=== PATIENT | female | born 1990 | race Two or more races ===

== ENCOUNTER 2016-12-07 22:15 | Emergency (ER) | payer MEDICAID ==
[2016-12-07] MEDS ORDERED: ONDANSETRON HCL IV 4 MG/2 ML VIAL IV ONE (22:39)
[2016-12-07] MEDS ORDERED: 0.9 % SODIUM CHLORIDE 1,000 ML BAG IV ONE (22:39)
[2016-12-07] MEDS ORDERED: DICYCLOMINE HCL 10 MG/ML AMPUL IM ONE (22:39)
[2016-12-07 23:16] LABS: URINE APPEARANCE CLEAR; URINE BILIRUBIN NEGATIVE (NEGATIVE); URINE BLOOD SMALL (NEGATIVE); URINE COLOR YELLOW; URINE GLUCOSE (UA) NEGATIVE (NEGATIVE); URINE KETONE NEGATIVE (NEGATIVE); URINE LEUKOCYTE ESTERASE NEGATIVE (NEGATIVE); URINE NITRITE NEGATIVE (NEGATIVE); URINE PROTEIN NEGATIVE (NEGATIVE); URINE UROBILINOGEN 0.2 E.U./dL (0.20 - 1.00)
[2016-12-07 23:17] LABS: BASO % 0.4 % (0-6); EOS % 0.7 % (0-6); HEMATOCRIT 39.9 % (35.0-47.0); MEAN CELL VOLUME 88.9 fl (81-97); MEAN CORPUSCULAR HGB CONC 32.6 g/dl (32-36); MEAN PLATELET VOLUME 9.5 fl (7.4-10.4); MONO % 6.9 % (0-9); PLATELET COUNT 332 K/uL (130-400); RED BLOOD COUNT 4.49 M/uL (3.80-5.40); RED CELL DISTRIBUTION WIDTH 12.9 % (11.5-14.5)
[2016-12-07 23:20] LABS: HCG,QUALITATIVE URINE NEGATIVE (NEGATIVE)
--- NOTE | 2016-12-07 23:20 | Emergency Department Record ---
History of Present Illness - General Chief Complaint: Abdominal Pain Stated Complaint: NAUSEA Time Seen by Provider: 12/07/16 22:34 Source: Patient Mode of Arrival: Ambulatory Limitations: No limitations - History of Present Illness Initial Comments: pt had constipation then today has had diarrhea, n/v, and abd pain that is constant Complaint: Abdominal pain Onset/Timin -: Days(s) Location: Diffuse Radiation: Back, Bilateral flank Migration to: Bilateral flank Severity: Severe Quality: Sharp Consistency: Constant Improves With: Medication Associated Symptoms: Diarrhea, Nausea, Vomiting Treatments Prior to Arrival: Other - Related Data LMP (females 10-50): 3 weeks ago Patient : No Home Medications Medication Instructions Recorded Confirmed Last Taken Ranitidine HCl 150 mg PO BID cap 05/18/16 12/07/16 Unknown Cyanocobalamin (Vitamin B-12) 2,500 mcg PO DAILY tab 07/11/16 12/07/16 Unknown [Vitamin B12] Melatonin 10 mg PO ASDIR tab 07/11/16 12/07/16 Unknown Naproxen 220 mg PO ASDIR PRN tab 07/11/16 12/07/16 Unknown Allergies Allergy/AdvReac Type Severity Reaction Status Date / Time passion fruit Allergy Intermediate WHEEZING Unverified 10/27/16 14:11 cat dander Allergy Mild HIVES Unverified 10/27/16 14:11 dog dander Allergy Mild HIVES Unverified 10/27/16 14:11 grass pollen Allergy Mild HIVES Unverified 10/27/16 14:11 Travel Screening - Travel/Exposure Within Last 30 Days Have you traveled within the last 30 days?: No - Travel Symptoms Symptom Screening: Diarrhea, Vomiting, Stomach Pain Review of Systems Reviewed: No additional complaints except as noted below Constitutional: Reports: As per HPI. Denies: Chills, Fever, Malaise, Night sweats, Weakness, Weight change Eyes: Reports: As per HPI. Denies: Eye discharge, Eye pain, Photophobia, Vision change ENT: Reports: As per HPI. Denies: Congestion, Dental pain, Ear pain, Epistaxis , Hearing loss, Throat pain Respiratory: Reports: As per HPI. Denies: Cough, Dyspnea, Hemoptysis, Stridor, Wheezes Cardiovascular: Reports: As per HPI. Denies: Arrhythmia, Chest pain, Dyspnea on exertion, Edema, Murmurs, Orthopnea, Palpitations, Paroxysmal nocturnal dyspnea, Rheumatic Fever, Syncope Endocrine: Reports: As per HPI. Denies: Fatigue, Heat or cold intolerance, Polydipsia, Polyuria Gastrointestinal: Reports: As per HPI. Denies: Abdominal pain, Constipation, Diarrhea, Hematemesis, Hematochezia, Melena, Nausea, Vomiting Genitourinary: Reports: As per HPI. Denies: Abnormal menses, Discharge, Dyspareunia, Dysuria, Frequency, Hematuria, Incontinence, Retention, Urgency Musculoskeletal: Reports: As per HPI. Denies: Arthralgia, Back pain, Gout, Joint swelling, Myalgia, Neck pain Skin: Reports: As per HPI. Denies: Bruising, Change in color, Change in hair/ nails, Lesions, Pruritus, Rash Neurological: Reports: As per HPI. Denies: Abnormal gait, Confusion, Headache, Numbness, Paresthesias, Seizure, Tingling, Tremors, Vertigo, Weakness Psychiatric: Reports: As per HPI. Denies: Anxiety, Auditory hallucinations, Depression, Homicidal thoughts, Suicidal thoughts, Visual hallucinations Hematological/Lymphatic: Reports: As per HPI. Denies: Anemia, Blood Clots, Easy bleeding, Easy bruising, Swollen glands Past Medical History - SOCIAL HISTORY Smoking Status: Former smoker Alcohol Use: Occassional Drug Use: None - RESPIRATORY Hx Respiratory Disorders: Yes Hx Asthma: Yes - CARDIOVASCULAR Hx Cardio Disorders: No - NEURO Hx Neuro Disorders: No - GI Hx GI Disorders: No - Hx Genitourinary Disorders: No - ENDOCRINE Hx Endocrine Disorders: No - MUSCULOSKELETAL Hx Musculoskeletal Disorders: Yes - PSYCH Hx Psych Problems: No - HEMATOLOGY/ONCOLOGY Hx Hematology/Oncology Disorders: No Family Medical History Any Significant Family History?: Yes Family Hx Comment (NOT TO BE USED IN PLACE OF ITEMS BELOW): Sister has Crohn's Hx Depression: Mother, Grandparents Hx Diabetes: Father, Mother, Brother/Sister, Grandparents Physical Exam - General General Appearance: Alert, Oriented x3, Cooperative, Mild distress - Head Head exam: Normal inspection - Eye Eye exam: Normal appearance, PERRL, EOMI Pupils: Normal accommodation - ENT ENT exam: Normal exam, Mucous membranes moist, Normal external ear exam, Normal orophraynx Ear exam: Normal external inspection. negative: External canal tenderness Nasal Exam: Normal inspection. negative: Discharge, Sinus tenderness Mouth exam: Normal external inspection, Tongue normal Teeth exam: Normal inspection. negative: Dental caries Throat exam: Normal inspection. negative: Tonsillar erythema, Tonsillar exudate - Neck Neck exam: Normal inspection, Full ROM. negative: Tenderness - Respiratory Respiratory exam: Normal lung sounds bilaterally. negative: Respiratory distress - Cardiovascular Cardiovascular Exam: Regular rate, Normal rhythm, Normal heart sounds - GI/Abdominal GI/Abdominal exam: Soft, Diminished bowel sounds, Tenderness - Rectal Rectal exam: Deferred - exam: Deferred - Extremities Extremities exam: Normal inspection, Full ROM, Normal capillary refill. negative: Tenderness - Back Back exam: Reports: Normal inspection, Full ROM. Denies: Muscle spasm, Rash noted, Tenderness - Neurological Neurological exam: Alert, CN II-XII intact, Normal gait, Oriented X3 - Psychiatric Psychiatric exam: Normal affect, Normal mood - Skin Skin exam: Dry, Intact, Normal color, Warm Course Vital Signs 12/07/16 22:23 Temperature 98.2 F Pulse Rate [ 92 H Pulse Ox Probe] Respiratory 20 Rate Blood Pressure 145/91 [Left Arm] Pulse Ox 100 Medical Decision Making - Data Complexity MDM Data: Labs Ordered and/or Reviewed - Lab Data Result diagrams: 12/07/16 23:00 12/07/16 23:00 Disposition Disposition: Discharge Clinical Impression: Abdominal pain Qualifiers: Abdominal location: generalized Qualified Code(s): R10.84 - Generalized abdominal pain Diarrhea Qualifiers: Diarrhea type: unspecified type Qualified Code(s): R19.7 - Diarrhea, unspecified Disposition: Home, Self-Care Condition: (1) Good Instructions: Abdominal Pain (ED), Acute Nausea and Vomiting (ED), Gastroenteritis (ED), Acute Diarrhea (ED) Additional Instructions: follow up with family doctor. return sooner if worse. clear liquids only for 12 hours. push fluids
[2016-12-07 23:29] LABS: ALB/GLOB RATIO 1.7 (1.1-1.8); ALBUMIN 4.5 gm/dL (3.5-5.0); ALKALINE PHOSPHATASE 71 U/L (38-126); ALT/SGPT 22 U/L (9-52); ANION GAP 11.6 (7-16); AST/SGOT 17 U/L (14-36); BILIRUBIN,TOTAL 0.27 mg/dL (0.2-1.3); BLOOD UREA NITROGEN 6 mg/dL (7-17); CARBON DIOXIDE 25.4 mmol/L (22-30); CREATININE 0.6 mg/dL (0.52-1.04); EST GLOMERULAR FILTRATION RATE > 60 ml/min; GLUCOSE,RANDOM 114 mg/dL (70-110); LIPASE 109 U/L (23-300); TOTAL PROTEIN 7.2 gm/dL (6.3-8.2); URINE BACTERIA 2+; URINE MUCUS LIGHT
[2016-12-08] MEDS ORDERED: KETOROLAC 30 MG/ML VIAL IVP ONE (00:28)
[2016-12-08] MEDS ORDERED: HYDROMORPHONE HCL 1 MG/ML CPJ IVP ONE (01:03)
[2016-12-08] MEDS ORDERED: ONDANSETRON 4 MG ODT TABLET SL ONE (01:39)
== END 2016-12-08 01:40 | disposition home or self-care (01) ==
LOC: ER 22:15
DX: R10.84 Generalized abdominal pain (principal); R11.2 Nausea with vomiting, unspecified; R19.7 Diarrhea, unspecified
CPT/HCPCS: 99284 ×2; 96374; 96372; 96375; 83690; 85025; 80053; 81001; 81025; 82272; 74176; J1885; J2405; J1170; J7030

== ENCOUNTER 2017-05-04 15:03 | Emergency (ER) | payer SELFPAY ==
[2017-05-04] MEDS: KETOROLAC 30 MG/ML VIAL IM ONE (16:13)
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
== END 2017-05-04 17:02 | disposition home or self-care (01) ==
LOC: ER 15:03
DX: S16.1XXA Strain of muscle, fascia and tendon at neck level, initial encounter (principal); M25.571 Pain in right ankle and joints of right foot; M25.551 Pain in right hip; M25.552 Pain in left hip; V40.5XXA Car driver injured in collision with pedestrian or animal in traffic accident, initial encounter; Y92.411 Interstate highway as the place of occurrence of the external cause
CPT/HCPCS: 99283; 96372; 99284; 73610; 72050; 73502; J1885

== ENCOUNTER 2018-02-25 13:58 | Emergency (ER) | payer MEDICAID ==
--- NOTE | 2018-02-25 14:54 | Emergency Department Record ---
History of Present Illness - General Chief complaint: Dental Stated complaint: jaw/dental pain Time Seen by Provider: 02/25/18 14:54 Source: Patient, RN notes reviewed Mode of Arrival: Ambulatory - History of Present Illness Initial comments: lost filling 2 days ago and developed pain yesterday. She put a filling from the drug store in the tooth and now it is painful. MD complaint: Tooth pain Onset/Timin -: Days(s) Location: Tooth # Severity: Moderate Severity scale (1-10): 9 Quality: Aching, Sharp Consistency: Constant Improves with: None Worsens with: Swallowing - Related Data Previous Rx's Medication Instructions Recorded Hydrocodone/APAP 5/325Mg [[place] 1 each PO Q6H #6 tab 02/25/18 5Mg/325Mg] Penicillin V Potassium 500 mg PO QID #40 tablet 02/25/18 Allergies Allergy/AdvReac Type Severity Reaction Status Date / Time passion fruit Allergy Intermediate WHEEZING Verified 02/25/18 14:05 cat dander Allergy Mild HIVES Verified 02/25/18 14:05 dog dander Allergy Mild HIVES Verified 02/25/18 14:05 grass pollen Allergy Mild HIVES Verified 02/25/18 14:05 Travel Screening - Travel/Exposure Within Last 30 Days Have you traveled within the last 30 days?: No - Travel/Exposure Within Last Year Have you traveled outside the [place] in the last year?: No - Additonal Travel Details Have you been exposed to anyone with a communicable illness?: No - Travel Symptoms Symptom Screening: None Review of Systems Reviewed: No additional complaints except as noted below Constitutional: Reports: As per HPI. Denies: Chills, Fever, Malaise, Night sweats, Weakness, Weight change Eyes: Reports: As per HPI. Denies: Eye discharge, Eye pain, Photophobia, Vision change ENT: Reports: As per HPI. Denies: Congestion, Dental pain, Ear pain, Epistaxis , Hearing loss, Throat pain Respiratory: Reports: As per HPI. Denies: Cough, Dyspnea, Hemoptysis, Stridor, Wheezes Cardiovascular: Reports: As per HPI. Denies: Arrhythmia, Chest pain, Dyspnea on exertion, Edema, Murmurs, Orthopnea, Palpitations, Paroxysmal nocturnal dyspnea, Rheumatic Fever, Syncope Endocrine: Reports: As per HPI. Denies: Fatigue, Heat or cold intolerance, Polydipsia, Polyuria Gastrointestinal: Reports: As per HPI. Denies: Abdominal pain, Constipation, Diarrhea, Hematemesis, Hematochezia, Melena, Nausea, Vomiting Genitourinary: Reports: As per HPI. Denies: Abnormal menses, Discharge, Dyspareunia, Dysuria, Frequency, Hematuria, Incontinence, Retention, Urgency Musculoskeletal: Reports: As per HPI. Denies: Arthralgia, Back pain, Gout, Joint swelling, Myalgia, Neck pain Skin: Reports: As per HPI. Denies: Bruising, Change in color, Change in hair/ nails, Lesions, Pruritus, Rash Neurological: Reports: As per HPI. Denies: Abnormal gait, Confusion, Headache, Numbness, Paresthesias, Seizure, Tingling, Tremors, Vertigo, Weakness Psychiatric: Reports: As per HPI. Denies: Anxiety, Auditory hallucinations, Depression, Homicidal thoughts, Suicidal thoughts, Visual hallucinations Hematological/Lymphatic: Reports: As per HPI. Denies: Anemia, Blood Clots, Easy bleeding, Easy bruising, Swollen glands Past Medical History - SOCIAL HISTORY Smoking Status: Former smoker Alcohol Use: Occasional Drug Use: None - RESPIRATORY Hx Respiratory Disorders: Yes Hx Asthma: Yes - CARDIOVASCULAR Hx Cardio Disorders: No - NEURO Hx Neuro Disorders: No - GI Hx GI Disorders: No - Hx Genitourinary Disorders: No - ENDOCRINE Hx Endocrine Disorders: No - MUSCULOSKELETAL Hx Musculoskeletal Disorders: Yes Comment:: right carpal tunnel - PSYCH Hx Psych Problems: No - HEMATOLOGY/ONCOLOGY Hx Hematology/Oncology Disorders: No Family Medical History Any Significant Family History?: Yes Family Hx Comment (NOT TO BE USED IN PLACE OF ITEMS BELOW): Sister has Crohn's Hx Depression: Mother, Grandparents Hx Diabetes: Father, Mother, Brother/Sister, Grandparents Physical Exam - General General Appearance: Alert, Oriented x3, Cooperative, Mild distress - Head Head exam: Normal inspection - Eye Eye exam: Normal appearance, PERRL Pupils: Normal accommodation - ENT ENT exam: Normal exam, Mucous membranes moist, Normal external ear exam, Normal orophraynx, TM's normal bilaterally Ear exam: Normal external inspection. negative: External canal tenderness Nasal Exam: Normal inspection. negative: Discharge, Sinus tenderness Mouth exam: Normal external inspection, Tongue normal Teeth exam: Normal inspection, Dental tenderness #. negative: Dental caries Throat exam: Normal inspection. negative: Tonsillar erythema, Tonsillar exudate Image of Mouth/Teeth: 1 - painful spot and some swelling - Neck Neck exam: Normal inspection, Full ROM. negative: Tenderness - Respiratory Respiratory exam: Normal lung sounds bilaterally. negative: Respiratory distress - Cardiovascular Cardiovascular Exam: Regular rate, Normal rhythm, Normal heart sounds - GI/Abdominal GI/Abdominal exam: Soft, Normal bowel sounds. negative: Tenderness - Rectal Rectal exam: Deferred - exam: Deferred - Extremities Extremities exam: Normal inspection, Full ROM, Normal capillary refill. negative: Tenderness - Back Back exam: Reports: Normal inspection, Full ROM. Denies: Muscle spasm, Rash noted, Tenderness - Neurological Neurological exam: Alert, Normal gait, Oriented X3, Reflexes normal - Psychiatric Psychiatric exam: Normal affect, Normal mood - Skin Skin exam: Dry, Intact, Normal color, Warm Course Vital Signs 02/25/18 14:00 Temperature 98.8 F Pulse Rate 111 H Respiratory 16 Rate Blood Pressure 143/92 Pulse Ox 98 Disposition Clinical Impression: Tooth ache Disposition: Home, Self-Care Condition: (1) Good Instructions: Toothache (ED) Additional Instructions: follow up with dentist in 2 days. Dentist in [place] warm water rinses use naprosyn she has at home twice a day Prescriptions: Hydrocodone/APAP 5/325Mg [[place] 5Mg/325Mg] 1 each PO Q6H #6 tab Penicillin V Potassium 500 mg PO QID #40 tablet Forms: Patient Portal Access Time of Disposition: 15:06 Quality - Quality Measures Quality Measures: N/A - Blood Pressure Screening Does Patient Have Any of the Following: No Blood Pressure Classification: Hypertensive Reading Systolic Measurement: 143 Diastolic Measurement: 92 Screening for High Blood Pressure: < Pre-Hypertensive BP, F/U Documented > [ G8950] Pre-Hypertensive Follow-up Interventions: Referral to alternative/primary care provider.
== END 2018-02-25 15:12 | disposition home or self-care (01) ==
LOC: ER 13:58
DX: K08.89 Other specified disorders of teeth and supporting structures (principal)
CPT/HCPCS: 99282

== ENCOUNTER 2018-02-26 13:35 | Observation (INO) | payer MEDICAID ==
[2018-02-26] MEDS ORDERED: CLINDAMYCIN 600MG/50ML PREMIX 600 MG/50 ML BAG IVPB ONE (14:35)
[2018-02-26 14:47] LABS: BASO % 0.9 % (0-6); EOS % 2.1 % (0-6); HEMATOCRIT 40.9 % (35.0-47.0); HEMOGLOBIN 13.4 gm/dl (11.6-16.0); LYMPH % 19.9 % (16-45); MEAN CELL VOLUME 89.3 fl (81-97); MEAN CORPUSCULAR HEMOGLOBIN 29.3 pg (27-33); MEAN CORPUSCULAR HGB CONC 32.8 g/dl (32-36); MEAN PLATELET VOLUME 9.5 fl (7.4-10.4); MONO % 5.1 % (0-9); PLATELET COUNT 271 K/uL (130-400); RED BLOOD COUNT 4.58 M/uL (3.80-5.40); RED CELL DISTRIBUTION WIDTH 13.7 % (11.5-14.5); WHITE BLOOD COUNT W/O DIFF 8.2 K/uL (4.2-12.2)
[2018-02-26 14:56] LABS: BLOOD UREA NITROGEN 9 mg/dL (6-20); CREATININE 0.4 mg/dL (0.5-0.9); EST GLOMERULAR FILTRATION RATE > 60 mL/min
--- NOTE | 2018-02-26 14:56 | Emergency Department Record ---
History of Present Illness - General Chief complaint: Dental Stated complaint: DENTAL ISSUES Time Seen by Provider: 02/26/18 14:20 Source: Patient, RN notes reviewed Mode of Arrival: Ambulatory - History of Present Illness Initial comments: patient seen here yesterday and started on penicillin and given norco and she saw her dentist and the swelling has gotten worse with swelling floor of mouth she says it is difficult to swallow. She was sent back to the ED by Dentist today. Patient is drinking water in the ED. Onset/Timin -: Days(s) Location: Tooth # Severity: Severe Severity scale (1-10): 10 Quality: Aching Consistency: Constant Improves with: None Worsens with: None Context- Dental: Other Associated Symptoms: Toothache - Related Data Previous Rx's Medication Instructions Recorded Hydrocodone/APAP 5/325Mg [[place] 1 each PO Q6H #6 tab 02/25/18 5Mg/325Mg] Penicillin V Potassium 500 mg PO QID #40 tablet 02/25/18 Allergies Allergy/AdvReac Type Severity Reaction Status Date / Time passion fruit Allergy Intermediate WHEEZING Verified 02/26/18 13:46 cat dander Allergy Mild HIVES Verified 02/26/18 13:46 dog dander Allergy Mild HIVES Verified 02/26/18 13:46 grass pollen Allergy Mild HIVES Verified 02/26/18 13:46 Travel Screening - Travel/Exposure Within Last 30 Days Have you traveled within the last 30 days?: No - Travel/Exposure Within Last Year Have you traveled outside the [place] in the last year?: No - Additonal Travel Details Have you been exposed to anyone with a communicable illness?: No - Travel Symptoms Symptom Screening: None Review of Systems Reviewed: No additional complaints except as noted below Constitutional: Reports: As per HPI. Denies: Chills, Fever, Malaise, Night sweats, Weakness, Weight change Eyes: Reports: As per HPI. Denies: Eye discharge, Eye pain, Photophobia, Vision change ENT: Reports: As per HPI, Dental pain, Other (swelling floor of hte mouth). Denies: Congestion, Ear pain, Epistaxis, Hearing loss, Throat pain Respiratory: Reports: As per HPI. Denies: Cough, Dyspnea, Hemoptysis, Stridor, Wheezes Cardiovascular: Reports: As per HPI. Denies: Arrhythmia, Chest pain, Dyspnea on exertion, Edema, Murmurs, Orthopnea, Palpitations, Paroxysmal nocturnal dyspnea, Rheumatic Fever, Syncope Endocrine: Reports: As per HPI. Denies: Fatigue, Heat or cold intolerance, Polydipsia, Polyuria Gastrointestinal: Reports: As per HPI. Denies: Abdominal pain, Constipation, Diarrhea, Hematemesis, Hematochezia, Melena, Nausea, Vomiting Genitourinary: Reports: As per HPI. Denies: Abnormal menses, Discharge, Dyspareunia, Dysuria, Frequency, Hematuria, Incontinence, Retention, Urgency Musculoskeletal: Reports: As per HPI. Denies: Arthralgia, Back pain, Gout, Joint swelling, Myalgia, Neck pain Skin: Reports: As per HPI. Denies: Bruising, Change in color, Change in hair/ nails, Lesions, Pruritus, Rash Neurological: Reports: As per HPI. Denies: Abnormal gait, Confusion, Headache, Numbness, Paresthesias, Seizure, Tingling, Tremors, Vertigo, Weakness Psychiatric: Reports: As per HPI. Denies: Anxiety, Auditory hallucinations, Depression, Homicidal thoughts, Suicidal thoughts, Visual hallucinations Hematological/Lymphatic: Reports: As per HPI. Denies: Anemia, Blood Clots, Easy bleeding, Easy bruising, Swollen glands Past Medical History - SOCIAL HISTORY Smoking Status: Former smoker Alcohol Use: Occasional Drug Use: None - RESPIRATORY Hx Respiratory Disorders: Yes Hx Asthma: Yes - CARDIOVASCULAR Hx Cardio Disorders: No - NEURO Hx Neuro Disorders: No - GI Hx GI Disorders: No - Hx Genitourinary Disorders: No - ENDOCRINE Hx Endocrine Disorders: No - MUSCULOSKELETAL Hx Musculoskeletal Disorders: Yes Comment:: right carpal tunnel - PSYCH Hx Psych Problems: No - HEMATOLOGY/ONCOLOGY Hx Hematology/Oncology Disorders: No Family Medical History Any Significant Family History?: Yes Family Hx Comment (NOT TO BE USED IN PLACE OF ITEMS BELOW): Sister has Crohn's Hx Depression: Mother, Grandparents Hx Diabetes: Father, Mother, Brother/Sister, Grandparents Physical Exam - General General Appearance: Alert, Oriented x3, Cooperative, No acute distress - Head Head exam: Normal inspection - Eye Eye exam: Normal appearance, PERRL Pupils: Normal accommodation - ENT ENT exam: Normal exam, Mucous membranes moist, Normal external ear exam, Normal orophraynx, TM's normal bilaterally Ear exam: Normal external inspection. negative: External canal tenderness Nasal Exam: Normal inspection. negative: Discharge, Sinus tenderness Mouth exam: Tongue normal, Other (swelling floor of mouth) Teeth exam: Normal inspection. negative: Dental caries Throat exam: Normal inspection. negative: Tonsillar erythema, Tonsillar exudate - Neck Neck exam: Normal inspection, Full ROM. negative: Tenderness - Respiratory Respiratory exam: Normal lung sounds bilaterally. negative: Respiratory distress - Cardiovascular Cardiovascular Exam: Regular rate, Normal rhythm, Normal heart sounds - GI/Abdominal GI/Abdominal exam: Soft, Normal bowel sounds. negative: Tenderness - Rectal Rectal exam: Deferred - exam: Deferred - Extremities Extremities exam: Normal inspection, Full ROM, Normal capillary refill. negative: Tenderness - Back Back exam: Reports: Normal inspection, Full ROM. Denies: Muscle spasm, Rash noted, Tenderness - Neurological Neurological exam: Alert, Normal gait, Oriented X3, Reflexes normal - Psychiatric Psychiatric exam: Normal affect, Normal mood - Skin Skin exam: Dry, Intact, Normal color, Warm Course Vital Signs 02/26/18 13:44 Temperature 98.5 F Pulse Rate 93 H Respiratory 20 Rate Blood Pressure 141/78 Pulse Ox 99 - Reevaluation(s) Reevaluation #1: discussed case with Keyonna and will admit to Dr. Quinones 02/26/18 16:20 Medical Decision Making - Data Complexity MDM Data: Labs Ordered and/or Reviewed, X-Ray Ordered and/or Reviewed (CT neck essentially negative) - Lab Data Result diagrams: 02/26/18 14:40 02/26/18 14:40 Lab Results 02/26/18 Range/Units 14:40 WBC 8.2 (4.2-12.2) K/uL RBC 4.58 (3.80-5.40) M/uL Hgb 13.4 (11.6-16.0) gm/dl Hct 40.9 (35.0-47.0) % MCV 89.3 (81-97) fl MCH 29.3 (27-33) pg MCHC 32.8 (32-36) g/dl RDW 13.7 (11.5-14.5) % Plt Count 271 (130-400) K/uL MPV 9.5 (7.4-10.4) fl Gran % 72.0 (47-80) % Lymphocytes % 19.9 (16-45) % Monocytes % 5.1 (0-9) % Eosinophils % 2.1 (0-6) % Basophils % 0.9 (0-6) % Disposition Clinical Impression: Facial cellulitis, Dental infection Decision to Admit: Admit from ER Condition: (2) Stable Forms: Patient Portal Access Time of Disposition: 16:21 Quality - Quality Measures Quality Measures: N/A - Blood Pressure Screening Does Patient Have Any of the Following: No Blood Pressure Classification: Hypertensive Reading Systolic Measurement: 141 Diastolic Measurement: 78 Screening for High Blood Pressure: < Pre-Hypertensive BP, F/U Documented > [ [id number]] Pre-Hypertensive Follow-up Interventions: Referral to alternative/primary care provider.
[2018-02-26 14:59] LABS: GLUCOSE,RANDOM 120 mg/dL (74-109)
[2018-02-26] MEDS ORDERED: KETOROLAC 30 MG/ML VIAL IVP ONE ×2 (15:15→19:50)
[2018-02-26] MEDS ORDERED: ACETAMINOPHEN 500 MG TABLET PO PRN (17:45)
[2018-02-26] MEDS ORDERED: 0.9 % SODIUM CHLORIDE 1000ML 1,000 ML IV PRN (17:45)
[2018-02-26] MEDS ORDERED: FLUTICASONE PROPIONATE 50MCG NASAL 16 GM BTL PRN (17:45)
[2018-02-26] MEDS: HYDROCODONE/APAP 5/325MG TABLET PO SCH ×2 (17:59→18:39)
[2018-02-26] MEDS: CLINDAMYCIN 600MG/50ML PREMIX 600 MG/50 ML BAG IVPB SCH (18:35)
[2018-02-26] MEDS: ONDANSETRON 4 MG ODT TABLET PO PRN (19:59)
[2018-02-26] MEDS: HYDROCODONE/APAP 5/325MG TABLET PO PRN (21:59)
[2018-02-26] MEDS: MELATONIN 5 MG TABLET PO SCH (22:00)
[2018-02-26] MEDS: RANITIDINE HCL 150 MG TABLET PO SCH (22:01)
[2018-02-27] MEDS: CLINDAMYCIN 600MG/50ML PREMIX 600 MG/50 ML BAG IVPB SCH ×3 (00:13→13:00)
[2018-02-27] MEDS: HYDROCODONE/APAP 5/325MG TABLET PO PRN ×3 (01:45→12:29)
[2018-02-27 06:31] LABS: BASO % 0.4 % (0-6); EOS % 3.4 % (0-6); HEMATOCRIT 39.2 % (35.0-47.0); HEMOGLOBIN 12.4 gm/dl (11.6-16.0); LYMPH % 30.7 % (16-45); MEAN CELL VOLUME 88.5 fl (81-97); MEAN CORPUSCULAR HGB CONC 31.6 g/dl (32-36); MEAN PLATELET VOLUME 9.2 fl (7.4-10.4); MONO % 8.5 % (0-9); PLATELET COUNT 293 K/uL (130-400); RED BLOOD COUNT 4.43 M/uL (3.80-5.40); RED CELL DISTRIBUTION WIDTH 13.2 % (11.5-14.5); WHITE BLOOD COUNT W/O DIFF 7.1 K/uL (4.2-12.2)
[2018-02-27 06:49] LABS: ALB/GLOB RATIO 1.5 (1.1-1.8); ALKALINE PHOSPHATASE 71 U/L (35-104); ALT/SGPT 28 U/L (<33); AST/SGOT 26 U/L (10.0-35.0); BLOOD UREA NITROGEN 7 mg/dL (6-20); CREATININE 0.5 mg/dL (0.5-0.9); EST GLOMERULAR FILTRATION RATE > 60 mL/min; GLUCOSE,RANDOM 129 mg/dL (74-109); TOTAL PROTEIN 6.6 g/dL (6.6-8.7)
--- NOTE | 2018-02-27 09:01 | CT SCAN REPORT ---
EXAM: CT OF THE NECK WITH CONTRAST HISTORY: SWELLING IN THE FLOOR OF THE MOUTH. FILLING FELL OUT OF LEFT LOWER MOLAR YESTERDAY. TECHNIQUE: Axial CT scan of the neck was performed following the intravenous administration of iodated contrast media. Please see the medical record for IV contrast specifics. Comparison: No prior neck CT with which to compare. FINDINGS: Mild membrane thickening is seen in the ethmoids and moderate membrane thickening in the maxillary sinuses particularly inferiorly. No air fluid levels seen in the visualized paranasal sinuses. Relatively little pneumatization to the right mastoids which may be developmental. Middle ear cavities appear clear. The visualized orbits appear unremarkable. No definite parotid, submandibular, or thyroid gland mass identified. No superior mediastinal mass or adenopathy evident. There is some mildly prominent cervical nodes bilaterally, but these all appear to measure less than 1 cm in maximum short axis with no definite cervical adenopathy identified. The epiglottis is of normal size. No prevertebral soft tissue swelling evident. No distention in the hypopharynx or narrowing in the subglottic airway identified. The vallecula and piriform sinuses are maintained. Some spurring in the cervical spine including posteriorly at the C5-C6 interspace. There is probably a disk protrusion at this level asymmetrically more prominent posteriorly on the right as well. This likely impinges on the anterior aspect of the cervical cord particularly on the right. This could be more accurately assessed with a cervical MRI if clinically warranted and not contraindicated. IMPRESSION: 1. SOME MEMBRANE THICKENING IN THE ETHMOID AND MAXILLARY SINUSES, PARTICULARLY INFERIORLY IN THE MAXILLARY SINUSES. 2. SOME MILDLY PROMINENT CERVICAL NODES, BUT NO DEFINITE CERVICAL MASS OR ADENOPATHY IDENTIFIED. 3. PROMINENT DISK SPUR COMPLEX AT THE C5-C6 INTERSPACE PARTICULARLY ON THE RIGHT. JOB NUMBER: [id number] [facility]
[2018-02-27] MEDS: ENOXAPARIN 40 MG/0.4 ML SYR SQ SCH (09:06)
[2018-02-27] MEDS: RANITIDINE HCL 150 MG TABLET PO SCH ×2 (09:11→21:22)
[2018-02-27] MEDS: DOCUSATE SODIUM 100 MG CAPSULE PO SCH ×2 (09:11→21:22)
[2018-02-27] MEDS ORDERED: POLYETHYLENE GLY 17 GM PACKET PO ONE (09:58)
[2018-02-27] MEDS ORDERED: BREO (FLUTICASONE/VILANTEROL) 200MCG/25MCG INHALER INH SCH (10:00)
[2018-02-27] MEDS ORDERED: FLUTICASONE PROPIONATE 50MCG NASAL 16 GM BTL SCH (10:00)
[2018-02-27] MEDS ORDERED: MONTELUKAST SODIUM 10MG TABLET PO SCH ×2 (10:00→22:00)
--- NOTE | 2018-02-27 10:06 | History & Physical ---
History of Present Illness - Date of Service Date of Service for History & Physical: 02/27/18 - History of Present Illness Admitting Diagnosis: facial cellulitis and dental infection History of Present Illness: Radha Arambula is a 28 y.o. female who presented to the ED on 2017 after visiting her dentist's office for mouth swelling and difficulty swallowing. This problem began 5 days ago (Monday evening 02/23/2018) when a tooth filling fell out of a left lower molar. On Monday02/24/2018, she had pain and swelling and self-treated with OTC tooth filler. By Monday02/25/2018, she presented to the ED with significantly more pain and swelling where she was placed on Logan for pain, penicillin for infection and told to f/u with dentist. She f/u with dentist on Monday and was told by dentist that the infection needed IV antibiotics and to return to the ED. In ED, was started on IV Clindamycin q. 6 hours. PMHx includes asthma, hx of smoking and right carpal tunnel. Home medications include Dulera, Singulair, Flonase, Albuterol, Flexeril and Zantac. 02/27/2018 VS: BP 145/96, HR 100, 100% on RA WBC 7.1, K+ 4.1, Glucose [address] - negative for abscess Pt reports that the swelling has decreased and she is able to swallow food and water. Pain 7/10 after 1 tab Logan and ice to neck. C/o slight nausea and constipation. Has not had bowel movement in 3 days. Is feeling better, reports concern about discharging home too early after being sent home from ED on Monday. Travel Screening - Travel/Exposure Within Last 30 Days Have you traveled within the last 30 days?: No - Travel/Exposure Within Last Year Have you traveled outside the [place] in the last year?: No - Additonal Travel Details Have you been exposed to anyone with a communicable illness?: No - Travel Symptoms Symptom Screening: None Review of Systems Constitutional: Reports: As per HPI. Denies: Chills, Fever, Malaise, Night sweats, Weakness, Weight change ENT: Reports: As per HPI, Dental pain, Other (swelling floor of the mouth). Denies: Congestion, Ear pain, Epistaxis, Hearing loss, Throat pain Respiratory: Denies: Cough, Dyspnea, Stridor, Wheezes Cardiovascular: Denies: Dyspnea on exertion Endocrine: Denies: Polyuria Gastrointestinal: Reports: Constipation, Nausea. Denies: Vomiting Skin: Denies: Pruritus, Rash Neurological: Denies: Headache, Tingling Past Medical History - SOCIAL HISTORY Smoking Status: Former smoker - RESPIRATORY Hx Respiratory Disorders: Yes Hx Asthma: Yes - CARDIOVASCULAR Hx Cardio Disorders: No - NEURO Hx Neuro Disorders: No - GI Hx GI Disorders: No - Hx Genitourinary Disorders: No - ENDOCRINE Hx Endocrine Disorders: No - MUSCULOSKELETAL Hx Musculoskeletal Disorders: Yes Comment:: right carpal tunnel - PSYCH Hx Psych Problems: No - HEMATOLOGY/ONCOLOGY Hx Hematology/Oncology Disorders: No Family Medical History Any Significant Family History?: Yes Family Hx Comment (NOT TO BE USED IN PLACE OF ITEMS BELOW): Sister has Crohn's Hx Depression: Mother, Grandparents Hx Diabetes: Father, Mother, Brother/Sister, Grandparents H&P Meds/Allergies - Allergies Allergies: Allergies Allergy/AdvReac Type Severity Reaction Status Date / Time passion fruit Allergy Intermediate WHEEZING Verified 02/26/18 13:46 cat dander Allergy Mild HIVES Verified 02/26/18 13:46 dog dander Allergy Mild HIVES Verified 02/26/18 13:46 grass pollen Allergy Mild HIVES Verified 02/26/18 13:46 - Home Medications Home Medications Medication Instructions Recorded Confirmed Last Taken Albuterol Sulfate [Ventolin Hfa] 2 puff INH Q4H PRN 02/27/18 02/27/18 Unknown Fluticasone Propionate 1 spray EACH NARES BID 02/27/18 02/27/18 Unknown Hydrocodone/Acetaminophen [Logan 1 each PO Q6H PRN 02/27/18 02/27/18 Unknown 5-325 Tablet] Montelukast Sodium 10 mg PO QHS 02/27/18 02/27/18 Unknown Naproxen 250 mg PO BID 02/27/18 02/27/18 Unknown Previous Rx's Medication Instructions Recorded Penicillin V Potassium 500 mg PO QID #40 tablet 02/25/18 - Active Medications Active Medications: Current Medications Acetaminophen (Tylenol 500mg Tab) 1,000 mg PO Q6H PRN PRN Reason: PAIN - MILD(1-4)/FEVER Hydrocodone Bitart/Acetaminophen (Logan 5mg/325mg) 1 each PO Q4H PRN PRN Reason: PAIN - MOD TO SEVERE (5-10) Last Admin: 02/27/18 06:09 Dose: 1 each Docusate Sodium (Colace) 100 mg PO BID [facility] Last Admin: 02/27/18 09:11 Dose: 100 mg Enoxaparin Sodium (Lovenox) 40 mg SQ DAILY [facility] Last Admin: 02/27/18 09:06 Dose: 40 mg Fluticasone Propionate (Flonase) 1 spray NA BID [facility] Clindamycin Phosphate (Cleocin 600 [id number]) 600 mg in 50 mls @ 100 mls/ hr IVPB Q6HR [facility] Last Infusion: 02/27/18 06:51 Dose: Infused Sodium Chloride () 1,000 mls @ 50 mls/hr IV .Q20H PRN PRN Reason: LARGE VOLUME IV Ibuprofen (Motrin 600mg) 600 mg PO Q6H PRN PRN Reason: PAIN - MILD (1-4) Melatonin (Melatonin) 10 mg PO QHS [facility] Last Admin: 02/26/18 22:00 Dose: 10 mg Montelukast Sodium (Singulair) 10 mg PO QHS [facility] Ondansetron HCl (Zofran Odt) 8 mg PO TID PRN PRN Reason: GI UPSET Last Admin: 02/26/18 19:59 Dose: 8 mg Ranitidine HCl (Zantac) 150 mg PO BID [facility] Last Admin: 02/27/18 09:11 Dose: 150 mg Physical Exam - Vital Signs Vital Signs: Vital Signs - Last 24 Hrs Temp Pulse Pulse Resp BP BP Pulse Ox 02/27/18 06:00 98.4 F 100 H 17 145/96 100 02/27/18 02:00 98.9 F 88 16 116/87 100 02/26/18 22:00 98.8 F 93 H 17 117/68 100 02/26/18 18:56 84 18 02/26/18 17:35 98.3 F 86 18 147/100 99 02/26/18 17:19 94 H 18 127/74 99 02/26/18 15:54 93 H 20 119/68 99 02/26/18 13:44 98.5 F 93 H 20 141/78 99 - General General Appearance: Alert, Oriented x3, Cooperative, No acute distress - Head Head exam: Normal inspection - Eye Eye exam: Normal appearance - ENT ENT exam: Normal exam, Mucous membranes moist Ear exam: Normal external inspection Nasal Exam: Normal inspection Mouth exam: Normal external inspection, Tongue normal, Other (swelling floor of mouth) Teeth exam: Normal inspection, Other (Multiple fillings present). negative: Dental caries Throat exam: Normal inspection. negative: Tonsillar erythema, Tonsillar exudate - Neck Neck exam: Normal inspection, Full ROM, Tenderness - Respiratory Respiratory exam: Normal lung sounds bilaterally. negative: Respiratory distress - Cardiovascular Cardiovascular Exam: Regular rate, Normal rhythm, Normal heart sounds - GI/Abdominal GI/Abdominal exam: Soft, Normal bowel sounds. negative: Tenderness - Rectal Rectal exam: Deferred - exam: Deferred - Extremities Extremities exam: Normal inspection, Normal capillary refill - Back Back exam: Reports: Normal inspection. Denies: Rash noted - Neurological Neurological exam: Alert, Oriented X3 - Psychiatric Psychiatric exam: Normal affect, Normal mood - Skin Skin exam: Dry, Intact, Normal color, Warm. negative: Erythema, Rash, Urticaria , Vesicles Results - Labs Result Diagrams: 02/27/18 06:21 02/27/18 06:21 Labs Last 24 Hours: Laboratory Results - last 24 hr 02/26/18 02/26/18 02/27/18 14:40 14:40 06:21 WBC 8.2 7.1 RBC 4.58 4.43 Hgb 13.4 12.4 Hct 40.9 39.2 MCV 89.3 88.5 MCH 29.3 28.0 MCHC 32.8 31.6 L RDW 13.7 13.2 Plt Count 271 293 MPV 9.5 9.2 Gran % 72.0 57.0 Lymphocytes % 19.9 30.7 Monocytes % 5.1 8.5 Eosinophils % 2.1 3.4 Basophils % 0.9 0.4 Sodium 137 Potassium 4.6 H Chloride 101 Carbon Dioxide 21.0 L Anion Gap 15.0 BUN 9 Creatinine 0.4 L Estimated GFR > 60 Random Glucose 120 H Calcium 9.0 Total Bilirubin AST ALT Alkaline Phosphatase Total Protein Albumin Globulin Albumin/Globulin Ratio 02/27/18 06:21 WBC RBC Hgb Hct MCV MCH MCHC RDW Plt Count MPV Gran % Lymphocytes % Monocytes % Eosinophils % Basophils % Sodium 140 Potassium 4.1 Chloride 101 Carbon Dioxide 28.0 Anion Gap 11.0 BUN 7 Creatinine 0.5 Estimated GFR > 60 Random Glucose 129 H Calcium 8.9 Total Bilirubin 0.20 AST 26 ALT 28 Alkaline Phosphatase 71 Total Protein 6.6 Albumin 4.0 Globulin 2.6 Albumin/Globulin Ratio 1.5 - Imaging and Cardiology CT scan - head Status: Report reviewed (CT of neck - negative for abscess) VTE H&P Assessment - Risk for VTE Risk for VTE: Yes Risk Level: Moderate Risk Assessment Date: 02/27/18 Risk Assessment Time: 10:42 VTE Orders Placed or Will Be Placed: Yes Plan - Inpatient Certification Inpatient Certification: Admit to inpatient care: Based on my medical assessment, after consideration of patient's risk factors (age, co-morbidities and patient presenting symptoms and acuity), I expect that this patient will remain in the hospital greater than or equal to two midnights and that the services needed warrant inpatient care because: Patient Risk Factors: [] Estimated length of stay: [] The patient may reasonably be expected to be discharged or transferred to a hospital within 96 hours after admission to [facility]. Services needed: [] Post hospital care (if known): [] I certify that my determination is in accordance with my understanding of Medicare requirements for reasonable and necessary inpatient services. - Detailed Diagnosis and Plan (1) Dental infection Current Visit: Yes Status: Acute Base Code: K04.7 - PERIAPICAL ABSCESS WITHOUT SINUS Comment: -Neck CT negative for abscess -Blood cultures negative x 2 -CBC WNL -Continue IV Clindamycin q. 6 hours, will switch to PO Clindamycin x 10 days at time of discharge -Potential discharge today after pt moves bowels -Educated pt on probiotics and/or Pierre's ACV while on PO Clindamycin at home -Will prescribe Diflucan for pt to have at home in case yeast infection develops d/t antibiotic therapy (2) Facial cellulitis Current Visit: Yes Status: Acute Base Code: L03.211 - CELLULITIS OF FACE Comment: -Continue IV Clindamycin q. 6 hours, will switch to PO Clindamycin before discharge (3) Tooth ache Current Visit: No Status: Acute Base Code: K08.89 - OTHER SPECIFIED DISORDERS OF TEETH AND SUPPORTING STRUCTURES Comment: -Continue Logan 5/325mg 1 tab PO q. 4 hours PRN -Ordered Ibuprofen 600mg PO q. 6 hours PRN -Continue ice application to neck (4) Constipation Current Visit: Yes Status: Acute Base Code: K59.00 - CONSTIPATION, UNSPECIFIED Comment: -Continue Docusate Sodium 100mg PO BID while on Logan -Miralax 17gm PO today (5) Nausea Current Visit: Yes Status: Acute Base Code: R11.0 - NAUSEA Comment: - Continue Ondansetron Odt 8mg PO TID PRN -Continue Zantac 150mg PO BID (6) Full code status Current Visit: Yes Status: Acute Base Code: Z78.9 - OTHER SPECIFIED HEALTH STATUS Comment: -Pt a full code (7) DVT prophylaxis Current Visit: Yes Status: Acute Base Code: [id number] - Comment: -Lovenox 40mg daily administered this morning -Nursing to encourage ambulation
[2018-02-27] MEDS ORDERED: ALPRAZOLAM 0.25 MG TABLET PO ONE (14:41)
[2018-02-27] MEDS ORDERED: METHYLPREDNISOLONE PF 125MG/VIAL IVP ONE (14:45)
[2018-02-27] MEDS ORDERED: ALPRAZOLAM 0.25 MG TABLET PO PRN (15:09)
[2018-02-27] MEDS: IBUPROFEN 600 MG TABLET PO PRN ×2 (15:12→21:21)
[2018-02-27] MEDS: MELATONIN 5 MG TABLET PO SCH (21:23)
[2018-02-27] MEDS: CLINDAMYCIN 150 MG CAP PO SCH (21:23)
[2018-02-28] MEDS: ONDANSETRON 4 MG ODT TABLET PO PRN (02:28)
[2018-02-28] MEDS: HYDROCODONE/APAP 5/325MG TABLET PO PRN ×2 (02:29→10:39)
[2018-02-28] MEDS: CLINDAMYCIN 150 MG CAP PO SCH (06:35)
[2018-02-28] MEDS ORDERED: PREDNISONE 20 MG TAB PO SCH (08:00)
[2018-02-28] MEDS: DOCUSATE SODIUM 100 MG CAPSULE PO SCH (09:58)
[2018-02-28] MEDS: RANITIDINE HCL 150 MG TABLET PO SCH (09:59)
[2018-02-28] MEDS: ENOXAPARIN 40 MG/0.4 ML SYR SQ SCH (09:59)
[2018-02-28] MEDS: IBUPROFEN 600 MG TABLET PO PRN (10:00)
--- NOTE | 2018-02-28 10:17 | Discharge Summary ---
Providers Discharge Summary Date: 02/28/18 Date of admission: 02/26/18 17:34 Expected Date of Discharge: 02/28/18 Attending physician: TONIO VITAL Primary care physician: TONIO VITAL Physical Exam - Vital Signs Vital Signs: Vital Signs - Last 24 Hrs Temp Pulse Resp BP Pulse Ox 02/28/18 06:00 98.1 F 85 14 128/76 02/28/18 02:00 98.4 F 96 H 16 114/58 96 02/27/18 22:00 98.1 F 103 H 16 119/80 96 02/27/18 17:13 98.1 F 83 18 131/95 96 02/27/18 10:00 98.1 F 83 18 133/79 96 - General General Appearance: Alert, Oriented x3, Cooperative, No acute distress - Head Head exam: Normal inspection - Eye Eye exam: Normal appearance - ENT ENT exam: Normal exam, Mucous membranes moist Ear exam: Normal external inspection Mouth exam: Normal external inspection, Tongue normal, Other (swelling floor of mouth) Teeth exam: Normal inspection, Other (Multiple fillings present). negative: Dental caries Throat exam: Normal inspection. negative: Tonsillar erythema, Tonsillar exudate - Neck Neck exam: Normal inspection, Full ROM. negative: Lymphadenopathy, Tenderness - Respiratory Respiratory exam: Normal lung sounds bilaterally. negative: Respiratory distress - Cardiovascular Cardiovascular Exam: Regular rate, Normal rhythm, Normal heart sounds - GI/Abdominal GI/Abdominal exam: Soft, Normal bowel sounds - Rectal Rectal exam: Deferred - exam: Deferred - Extremities Extremities exam: Normal inspection - Back Back exam: Reports: Rash noted - Neurological Neurological exam: Alert, Oriented X3 - Psychiatric Psychiatric exam: Normal affect, Normal mood - Skin Skin exam: Dry, Intact, Normal color, Warm. negative: Erythema, Rash, Urticaria , Vesicles Hospitalization - Hospitalization Admission Diagnosis: facial cellulitis and dental infection - Problem List/Discharge Diagnosis (1) Dental infection Current Visit: Yes Status: Acute Base Code: K04.7 - PERIAPICAL ABSCESS WITHOUT SINUS Comment: 02/28/2018 -Neck CT negative for abscess -Blood cultures negative x 2 -CBC WNL -Continue PO Clindamycin 300mg every 8 hours x 9 days -Educated pt on probiotics and/or Pierre's ACV while on PO Clindamycin at home -Ordered Diflucan 150mg in case pt develops a yeast infection at home (2) Facial cellulitis Current Visit: Yes Status: Acute Base Code: L03.211 - CELLULITIS OF FACE Comment: 02/28/2018 -Blood cultures negative x 2 -CBC WNL -Continue PO Clindamycin 300mg every 8 hours x 9 days -Educated pt on probiotics and/or Pierre's ACV while on PO Clindamycin at home -Ordered Diflucan 150mg in case pt develops a yeast infection at home (3) Tooth ache Current Visit: No Status: Acute Base Code: K08.89 - OTHER SPECIFIED DISORDERS OF TEETH AND SUPPORTING STRUCTURES Comment: 02/28/2018 -Continue [place] 5/325mg PRN, paper script given for 10 pills, -Pt to take an Aleve daily -Continue ice application to neck (4) Constipation Current Visit: Yes Status: Acute Base Code: K59.00 - CONSTIPATION, UNSPECIFIED Comment: 02/28/2018 -Continue Docusate Sodium 100mg PO BID while on [place] -Pt to take Probiotic while on Clindamycin (5) Nausea Current Visit: Yes Status: Acute Base Code: R11.0 - NAUSEA Comment: 2017 -Continue Ondansetron Odt 4mg PO as needed (6) Full code status Current Visit: Yes Status: Acute Base Code: Z78.9 - OTHER SPECIFIED HEALTH STATUS Comment: -Pt a full code (7) DVT prophylaxis Current Visit: Yes Status: Acute Base Code: [id number] - Comment: - Encourage ambulation - Hospitalization Course Disposition: Home, Self-Care Hospital Course: Radha Arambula is a 28 y.o. female who presented to the ED on 2017 after visiting her dentist's office for mouth swelling and difficulty swallowing. This problem began 5 days ago (Monday evening 02/23/2018) when a tooth filling fell out of a left lower molar. On Monday02/24/2018, she had pain and swelling and self-treated with OTC tooth filler. By Monday02/25/2018, she presented to the ED with significantly more pain and swelling where she was placed on [place] for pain, penicillin for infection and told to f/u with dentist. She f/u with dentist on Monday and was told by dentist that the infection needed IV antibiotics and to return to the ED. In ED, was started on IV Clindamycin q. 6 hours. PMHx includes asthma, hx of smoking and right carpal tunnel. Home medications include Dulera, Singulair, Flonase, Albuterol, Flexeril and Zantac. 02/27/2018 VS: BP 145/96, HR 100, 100% on RA WBC 7.1, K+ 4.1, Glucose [address] - negative for abscess Pt reports that the swelling has decreased and she is able to swallow food and water. Pain /10 after 1 tab [place] and ice to neck. C/o slight nausea and constipation. Has not had bowel movement in 3 days. Is feeling better, reports concern about discharging home too early after being sent home from ED on Monday. 02/28/2018 Yesterday afternoon, pt tearful and anxious regarding IV therapy as she felt the IV was going to "become dislodged in her vein". At that time, she also c/o feeling like she couldn't swallow or breathe. LS CTA and no further swelling noted to mouth or throat. Ordered Xanax, IV Solumedrol x 1 and switched IV Clindamycin to Oral. Overnight, pt tolerated medications and regular diet as well as had a bowel movement in the night. Today, she reports feeling "much better" and reports that the swelling has decreased. Feels ready to go home. Stable at time of discharge. Procedures: Imaging and X-Rays 02/26/18 15:08 SOFT TISSUE NECK W CONTRAST [CT] Stat Abnormal Labs: Abnormal Lab Results 02/26/18 02/27/18 02/27/18 Range/Units 14:40 06:21 06:21 MCHC 31.6 L (32-36) g/dl Potassium 4.6 H (3.4-4.5) mmol/L Carbon Dioxide 21.0 L (22-29) mmol/L Creatinine 0.4 L (0.5-0.9) mg/dL Random Glucose 120 H 129 H (74-109) mg/dL Condition at Discharge: (2) Stable Discharge Medications - Discharge Medications Prescriptions: Clindamycin HCl [Cleocin HCl] 300 mg PO Q8H #27 cap Fluconazole [Diflucan] 150 mg PO DAILY #2 tablet Hydrocodone/APAP 5/325Mg [[place] 5Mg/325Mg] 1 each PO Q6H PRN #10 tab PRN Reason: Pain - Mod To Severe (5-10) Ondansetron [Zofran Odt] 4 mg PO TID PRN #10 tab.rapdis PRN Reason: Gi Upset Prednisone [Prednisone 20Mg] 50 mg PO DAILYWM #10 tab Home Medications: Ambulatory Orders Melatonin 10 mg PO QHS tab 07/11/16 [Last Taken 1 Day Ago ~02/24/18] Albuterol Sulfate [Ventolin Hfa] 2 puff INH Q4H PRN 02/27/18 [Last Taken Unknown ] Naproxen 250 mg PO BID 02/27/18 [Last Taken Unknown] Acetaminophen [Tylenol 500Mg Tab] 1,000 mg PO Q6H PRN tablet 02/28/18 [Last Taken Unknown] Clindamycin HCl [Cleocin HCl] 300 mg PO Q8H #27 cap 02/28/18 [Last Taken Unknown ] Docusate Sodium [Colace] 100 mg PO BID cap 02/28/18 [Last Taken Unknown] Fluconazole [Diflucan] 150 mg PO DAILY #2 tablet 02/28/18 [Last Taken Unknown] Fluticasone Propionate [Flonase] 1 spray NA BID btl 02/28/18 [Last Taken Unknown] Hydrocodone/APAP 5/325Mg [[place] 5Mg/325Mg] 1 each PO Q6H PRN #10 tab 02/28/18 [ Last Taken Unknown] Montelukast Sodium [Singulair] 10 mg PO QHS tab 02/28/18 [Last Taken Unknown] Ondansetron [Zofran Odt] 4 mg PO TID PRN #10 tab.rapdis 02/28/18 [Last Taken Unknown] Prednisone [Prednisone 20Mg] 50 mg PO DAILYWM #10 tab 02/28/18 [Last Taken Unknown] Discharge Plan - Discharge Instructions Activity at Discharge: Resume Usual Activities As Tolerated Diet at Discharge: Regular Diet Additional Instructions: Follow up with [facility] as scheduled on 03/20/18. Quality Measures - Quality Measures Quality Measures: Documentation of Current Medications in Medical Record, Screening for High Blood Pressure and F/U Documented - Current Medications Quality Measure: Measure #130: Documentation of Current Medications Documentation of Current Medications: <Current Medications Documented/Reviewed> [G8427] - Blood Pressure Screening Quality Measure: Screening for High Blood Pressure and Follow-Up Documented Does Patient Have Any of the Following: No Blood Pressure Classification: Hypertensive Reading Systolic Measurement: 141 Diastolic Measurement: 78 Screening for High Blood Pressure: < Normal BP, F/U Not Required > [G8783] - Elder Abuse Suspicion Index EASI Reference Information: Bulmaro DONATO, Maurice Ramírez, Teresa Faria, Martha Mack.Development and validation of a tool to assist physicians identification of elder abuse: The Elder Abuse Suspicion Index (EASI ). Journal of Elder Abuse and Neglect, 2008; 20 (3): 276-300.
== END 2018-02-28 10:50 | disposition home or self-care (01) ==
LOC: ER 13:35 → INTOOBSV 17:34 → MEDSURG 17:34
PROVIDERS: ADMIT Internal Medicine; ATTEND Internal Medicine
DX: L03.211 Cellulitis of face (principal); K08.89 Other specified disorders of teeth and supporting structures; R11.0 Nausea; K59.00 Constipation, unspecified; J45.909 Unspecified asthma, uncomplicated; Z87.891 Personal history of nicotine dependence
CPT/HCPCS: 85025 ×2; 80048; 80053; 70491; G0378 ×3; Q9967; J1885; J7512; J3490; 96365; 96374; 99217; 99220; 99285; J1650; J2930

== ENCOUNTER 2018-06-07 08:46 | Day surgery (SDC) | payer MEDICAID ==
[~2018-06-07 08:46] MED LIST: ACETAMINOPHEN 1,000 MG/100 ML BTL IV ONE
[2018-06-07] MEDS ORDERED: ALBUTEROL HFA 8 GM INHALER INH ONE (08:47)
[2018-06-07] MEDS ORDERED: PROPOFOL 10 MG/ML VIAL IV ONE (08:47)
[2018-06-07] MEDS ORDERED: KETAMINE HCL 100MG/1ML VIAL INJ ONE (08:47)
[2018-06-07] MEDS ORDERED: LIDOCAINE 2% MDV (20MG/ML) 20ML VIAL IV ONE (08:47)
[2018-06-07] MEDS ORDERED: HYDROCODONE/APAP 5/325MG TABLET PO ONE (08:47)
[2018-06-07] MEDS ORDERED: MIDAZOLAM HCL 2MG/2ML VIAL IV ONE (08:47)
[2018-06-07] MEDS ORDERED: FENTANYL PF 100MCG/2ML VIAL IV ONE (08:47)
[2018-06-07] MEDS ORDERED: SEVOFLURANE 250 ML INH ONE (08:47)
--- NOTE | 2018-06-08 10:50 | Operative Note ---
DATE OF SURGERY: 06/07/2018 Surgeon: Srini Conley DO PREOPERATIVE DIAGNOSIS: Carpal tunnel syndrome of the right wrist. POSTOPERATIVE DIAGNOSIS: Carpal tunnel syndrome of the right wrist. OPERATION: Decompression right median nerve at the wrist using 3.5 loop magnification. DESCRIPTION OF PROCEDURE: This 28-year-old female was taken to the operating room and placed in the supine position on the operating room table. General anesthesia was induced. The right upper extremity was elevated. It was prepped with Hibiclens and draped in the usual sterile fashion. It was exsanguinated and the tourniquet inflated to 250 mmHg. A palmar incision was utilized following the hypothenar crease from the level of the web space of the thumb to the flexor crease of the wrist. Dissection carried down through the skin and subcutaneous tissue. Hemostasis obtained with the electrocautery. Palmar fascia divided in line with the skin incision. The flexor retinaculum was easily identified, punctured, and then split to its proximal margin. Contents of carpal tunnel were under direct vision and the transverse carpal ligament was transected along its ulnar border and the radial flap was raised to expose the entire median nerve under the transverse carpal ligament. Recurrent motor branch of the median nerve identified and found to be intact. The medial nerve did demonstrate hyperemia and injection of the perineurium. The wound was irrigated and the tourniquet released. Hemostasis obtained with the electrocautery. The wound was closed with interrupted 6-0 nylon suture. Sterile dressings with plastic splint immobilization was applied. The patient taken to the recovery room in satisfactory condition. GROSS PATHOLOGY: This patient demonstrated compression of the median nerve under the transverse carpal ligament with hyperemia of the nerve being identified. CC: MONIK Singh
== END 2018-06-07 11:45 | disposition home or self-care (01) ==
LOC: SUR 08:46
PROVIDERS: ATTEND Orthopaedic Surgery
DX: G56.01 Carpal tunnel syndrome, right upper limb (principal)
CPT/HCPCS: 64721; 64727; 01810; 81025; J3010

== ENCOUNTER 2018-06-28 22:59 | Emergency (ER) | payer MEDICAID ==
[2018-06-28] MEDS ORDERED: DIPHENHYDRAMINE HCL 50 MG/ML VIAL IVP ONE (23:47)
--- NOTE | 2018-06-28 23:55 | Emergency Department Record ---
History of Present Illness - General Chief Complaint: Headache Migraine Stated Complaint: MIGRAINE Time Seen by Provider: 06/28/18 23:40 Source: Patient Mode of Arrival: Ambulatory Limitations: No limitations - History of Present Illness Initial Comments: 28 yo female presents with a headache she states is her typical migraine. She states she has had migraines since adolescence. She states she has migraines about once a week on average. She states she has light and noise sensitivity. She has nausea and vomiting. She normally takes Zofran with the vomiting but it was not working. NO fever or trauma. No vision changes. She does have eye pain sometimes as a preceding symptoms then develops the migraine. No weakness , numbness or tingling. She does not see a neurologist. [facility]. MD Complaint: "Migraine" Onset/Timin -: Hour(s) Onset Description: Gradual Location: Diffuse Severity scale (1-10): 10 Quality: Pulsatile, Similar to previous headaches Consistency: Constant Improves With: Nothing Worsens With: Light, Movement of head/neck, Noise Context: Other Associated Symptoms: Nausea, Photophobia, Sensitivity to sound, Vomiting Treatments Prior to Arrival: Acetaminophen, Ibuprofen Treatment Prior to Arrival Comment:: 1 norco yesterday - Related Data Previous Rx's Medication Instructions Recorded Acetaminophen [Tylenol 500Mg Tab] 1,000 mg PO Q6H PRN tablet 02/28/18 Montelukast Sodium [Singulair] 10 mg PO QHS tab 02/28/18 Allergies Allergy/AdvReac Type Severity Reaction Status Date / Time passion fruit Allergy Intermediate WHEEZING Verified 06/28/18 23:25 cat dander Allergy Mild HIVES Verified 06/28/18 23:25 dog dander Allergy Mild HIVES Verified 06/28/18 23:25 grass pollen Allergy Mild HIVES Verified 06/28/18 23:25 Travel Screening - Travel/Exposure Within Last 30 Days Have you traveled within the last 30 days?: No - Travel Symptoms Symptom Screening: None Review of Systems Constitutional: Denies: Chills, Fever, Malaise, Weakness Eyes: Denies: Eye discharge, Eye pain, Photophobia, Vision change ENT: Denies: Congestion, Throat pain Respiratory: Denies: Cough, Dyspnea, Hemoptysis, Stridor, Wheezes Cardiovascular: Denies: Chest pain, Palpitations, Syncope Endocrine: Denies: Fatigue Gastrointestinal: Reports: Nausea, Vomiting. Denies: Abdominal pain, Diarrhea Genitourinary: Denies: Dysuria, Urgency Musculoskeletal: Denies: Arthralgia, Back pain, Joint swelling, Myalgia, Neck pain Skin: Denies: Bruising, Change in color, Rash Neurological: Reports: Headache. Denies: Abnormal gait, Confusion, Numbness, Seizure, Tingling, Tremors, Vertigo, Weakness Psychiatric: Denies: Anxiety Hematological/Lymphatic: Denies: Blood Clots, Easy bleeding, Easy bruising, Swollen glands Past Medical History - SOCIAL HISTORY Smoking Status: Former smoker - RESPIRATORY Hx Respiratory Disorders: Yes Hx Asthma: Yes (exercise induced fair control no recent hospitalizations) Hx Bronchitis: Yes Hx Dyspnea: Yes Hx Pneumonia: Yes Hx Sleep Apnea: Yes (possibly unable to test due to "severe insomnia") Hx of CPAP: No - CARDIOVASCULAR Hx Cardio Disorders: No - NEURO Hx Neuro Disorders: Yes Hx of Migraines: Yes (daily) - GI Hx GI Disorders: Yes Hx Reflux: Yes (on meds good control) Hx Nausea/Vomiting: Yes (occassionally with periods) - Hx Genitourinary Disorders: No - ENDOCRINE Hx Endocrine Disorders: No - MUSCULOSKELETAL Hx Musculoskeletal Disorders: Yes Comment:: right carpal tunnel - PSYCH Hx Psych Problems: Yes Hx Anxiety: Yes (panic attacks 1-2 x's a week) - HEMATOLOGY/ONCOLOGY Hx Hematology/Oncology Disorders: No Family Medical History Any Significant Family History?: Yes Family Hx Comment (NOT TO BE USED IN PLACE OF ITEMS BELOW): Sister has Crohn's Hx Depression: Mother, Grandparents Hx Diabetes: Father, Mother, Brother/Sister, Grandparents Physical Exam - General General Appearance: Alert, Oriented x3, Cooperative, No acute distress Limitations: No limitations - Head Head exam: Atraumatic, Normal inspection - Eye Eye exam: Normal appearance, PERRL. negative: Conjunctival injection, Scleral icterus - ENT ENT exam: Normal exam, Mucous membranes moist Ear exam: Normal external inspection Nasal Exam: Normal inspection Mouth exam: Normal external inspection Teeth exam: Normal inspection Throat exam: Normal inspection. negative: Tonsillar erythema, Tonsillomegaly - Neck Neck exam: Normal inspection. negative: Lymphadenopathy, Meningismus, Tenderness - Respiratory Respiratory exam: Normal lung sounds bilaterally. negative: Respiratory distress - Cardiovascular Cardiovascular Exam: Regular rate, Normal rhythm, Normal heart sounds - GI/Abdominal GI/Abdominal exam: Soft. negative: Tenderness - Rectal Rectal exam: Deferred - exam: Deferred - Extremities Extremities exam: Normal inspection, Full ROM, Normal capillary refill. negative: Tenderness - Back Back exam: Denies: CVA tenderness (R), CVA tenderness (L), Rash noted - Neurological Neurological exam: Alert, CN II-XII intact, Oriented X3. negative: Altered, Motor sensory deficit - Psychiatric Psychiatric exam: Normal affect, Normal mood. negative: Agitated, Anxious - Skin Skin exam: Dry, Intact, Normal color, Warm Course Vital Signs 06/28/18 23:27 Temperature 98.8 F Pulse Rate 104 H Respiratory 18 Rate Blood Pressure 129/76 Pulse Ox 97 - Reevaluation(s) Reevaluation #1: 06/29/18 01:05 On recheck the patient has complete relief and she is ready to go We discussed the importance of follow up Disposition Disposition: Discharge Clinical Impression: Migraine Qualifiers: Migraine type: unspecified Status migrainosus presence: without status migrainosus Intractability: not intractable Qualified Code(s): G43.909 - Migraine, unspecified, not intractable, without status migrainosus Disposition: Home, Self-Care Condition: (1) Good Instructions: Migraine Headache (ED) Additional Instructions: Call your family doctor to discuss your long history of headaches Return if the headache returns, vomiting, dizziness or any other concerns Forms: Patient Portal Access Time of Disposition: 01:06 Quality - Quality Measures Quality Measures: N/A, Headache (All Ages) - Headache: Neuroimaging Quality Measure: Measure #419: Overuse of Neuroimaging ICD10 Codes Entered: Yes Neurological Exam: Patient had a normal neurological exam. [G9535] Headache: Use of Neuroimaging: < CTA, CT, MRA or MRI was NOT ordered > [G9534] - Blood Pressure Screening Does Patient Have Any of the Following: No Blood Pressure Classification: Pre-Hypertensive BP Reading Systolic Measurement: 129 Diastolic Measurement: 76 Screening for High Blood Pressure: < Pre-Hypertensive BP, F/U Documented > [ G8950] Pre-Hypertensive Follow-up Interventions: Referral to alternative/primary care provider.
[2018-06-29] MEDS: 0.9 % SODIUM CHLORIDE 1,000 ML BAG IV ONE (00:20)
[2018-06-29] MEDS: KETOROLAC 30 MG/ML VIAL IVP ONE (00:21)
[2018-06-29] MEDS: METOCLOPRAMIDE HCL 10 MG/2 ML VIAL IVP ONE (00:22)
== END 2018-06-29 01:17 | disposition home or self-care (01) ==
LOC: ER 22:59
DX: G43.909 Migraine, unspecified, not intractable, without status migrainosus (principal); R11.2 Nausea with vomiting, unspecified; H53.149 Visual discomfort, unspecified
CPT/HCPCS: 99284 ×2; 96374; 96375; 96361; J1885; J2765; J7030

== ENCOUNTER 2018-07-29 15:37 | Emergency (ER) | payer MEDICAID ==
--- NOTE | 2018-07-29 17:32 | Emergency Department Record ---
History of Present Illness - General Chief complaint: ENT Stated complaint: SINUS INFECTION Time Seen by Provider: 07/29/18 17:26 Source: Patient Mode of Arrival: Ambulatory Limitations: No limitations - History of Present Illness Initial comments: 28 yo female presents to ED for evaluation of sinus pressure and pain symptoms for approximately 10 days. Patient denies fevers/chills, does report mild sore throat symptoms. Patient also reports a history of asthma. Patient has been using both Flonase and Claritan without improvement in her symptoms at home. MD complaint: Other Onset/Timin -: Days(s) Severity: Moderate Severity scale (1-10): 7 Quality: Aching, Dull Consistency: Constant Improves with: None Worsens with: None Associated Symptoms: Sore throat, Other (Sinus pressure) - Related Data Previous Rx's Medication Instructions Recorded Acetaminophen [Tylenol 500Mg Tab] 1,000 mg PO Q6H PRN tablet 02/28/18 Montelukast Sodium [Singulair] 10 mg PO QHS tab 02/28/18 Amoxicillin [Amoxil] 875 mg PO BID #20 tab 07/29/18 Fluconazole [Diflucan] 150 mg PO ONCE #1 tab 07/29/18 Allergies Allergy/AdvReac Type Severity Reaction Status Date / Time passion fruit Allergy Intermediate WHEEZING Verified 07/29/18 17:04 cat dander Allergy Mild HIVES Verified 07/29/18 17:04 dog dander Allergy Mild HIVES Verified 07/29/18 17:04 grass pollen Allergy Mild HIVES Verified 07/29/18 17:04 Travel Screening - Travel/Exposure Within Last 30 Days Have you traveled within the last 30 days?: No - Travel/Exposure Within Last Year Have you traveled outside the [place] in the last year?: No - Additonal Travel Details Have you been exposed to anyone with a communicable illness?: No - Travel Symptoms Symptom Screening: None Review of Systems Constitutional: Denies: Chills, Fever, Malaise, Night sweats Eyes: Denies: Eye discharge, Eye pain ENT: Reports: Congestion. Denies: Ear pain, Epistaxis Respiratory: Denies: Cough, Dyspnea Cardiovascular: Denies: Chest pain, Dyspnea on exertion Endocrine: Denies: Fatigue, Heat or cold intolerance Gastrointestinal: Denies: Abdominal pain, Nausea, Vomiting Genitourinary: Denies: Incontinence, Retention Musculoskeletal: Denies: Arthralgia, Back pain Skin: Denies: Bruising, Change in color Neurological: Denies: Abnormal gait, Confusion, Headache Psychiatric: Denies: Anxiety Hematological/Lymphatic: Denies: Anemia, Blood Clots Past Medical History - SOCIAL HISTORY Smoking Status: Former smoker Alcohol Use: Rare, Occasional Drug Use: None - RESPIRATORY Hx Respiratory Disorders: Yes Hx Asthma: Yes (exercise induced fair control no recent hospitalizations) Hx Bronchitis: Yes Hx Dyspnea: Yes Hx Pneumonia: Yes Hx Sleep Apnea: Yes (possibly unable to test due to "severe insomnia") Hx of CPAP: No - CARDIOVASCULAR Hx Cardio Disorders: No - NEURO Hx Neuro Disorders: Yes Hx of Migraines: Yes (daily) - GI Hx GI Disorders: Yes Hx Reflux: Yes (on meds good control) Hx Nausea/Vomiting: Yes (occassionally with periods) - Hx Genitourinary Disorders: No - ENDOCRINE Hx Endocrine Disorders: No - MUSCULOSKELETAL Hx Musculoskeletal Disorders: Yes Comment:: right carpal tunnel - PSYCH Hx Psych Problems: Yes Hx Anxiety: Yes (panic attacks 1-2 x's a week) - HEMATOLOGY/ONCOLOGY Hx Hematology/Oncology Disorders: No Family Medical History Any Significant Family History?: Yes Family Hx Comment (NOT TO BE USED IN PLACE OF ITEMS BELOW): Sister has Crohn's Hx Depression: Mother, Grandparents Hx Diabetes: Father, Mother, Brother/Sister, Grandparents Physical Exam - General General Appearance: Alert, Oriented x3, Cooperative, No acute distress Limitations: No limitations - Head Head exam: Atraumatic, Normocephalic, Normal inspection Head exam detail: negative: Abrasion, Contusion, Verduzco's sign, General tenderness, Hematoma, Laceration - Eye Eye exam: Normal appearance. negative: Conjunctival injection, Periorbital swelling, Periorbital tenderness, Scleral icterus - ENT Ear exam: negative: Auricular hematoma, Auricular trauma Nasal Exam: Sinus tenderness. negative: Active bleeding, Discharge, Dried blood , Foreign body Mouth exam: negative: Drooling, Laceration, Muffled voice, Tongue elevation Throat exam: negative: Tonsillar erythema, Tonsillomegaly, R peritonsillar mass , L peritonsillar mass - Neck Neck exam: Normal inspection. negative: Meningismus, Tenderness - Respiratory Respiratory exam: Normal lung sounds bilaterally. negative: Respiratory distress, Rhonchi, Stridor, Wheezes - Cardiovascular Cardiovascular Exam: Regular rate, Normal rhythm, Normal heart sounds - GI/Abdominal GI/Abdominal exam: Soft. negative: Rebound, Rigid, Tenderness - Rectal Rectal exam: Deferred - exam: Deferred - Extremities Extremities exam: Normal inspection. negative: Pedal edema, Tenderness - Back Back exam: Denies: CVA tenderness (R), CVA tenderness (L) - Neurological Neurological exam: Alert, Normal gait, Oriented X3 - Psychiatric Psychiatric exam: Normal affect, Normal mood - Skin Skin exam: Normal color. negative: Abrasion Type of lesion: negative: abrasion Course Vital Signs 07/29/18 16:58 Temperature 98.8 F Pulse Rate 83 Respiratory 18 Rate Blood Pressure 137/71 Pulse Ox 98 - Reevaluation(s) Reevaluation #1: 07/29/18 17:37 Patient was seen and examined. Patient has been using both Flonase and Claritan without improvement Will prescribe Amoxicillin for possible bacterial source of her sinus pain and congestion symptoms. Disposition Disposition: Discharge Clinical Impression: Sinusitis Qualifiers: Sinusitis location: sphenoidal Chronicity: acute Recurrence: recurrent Qualified Code(s): J01.31 - Acute recurrent sphenoidal sinusitis Disposition: Home, Self-Care Condition: (2) Stable Instructions: Sinusitis (ED) Additional Instructions: Return to ED if your symptoms worsen or if you have any concerns. Amoxicillin and Diflucan as directed. Follow-up with Paty Ely in 5-7 days as directed. Prescriptions: Amoxicillin [Amoxil] 875 mg PO BID #20 tab Fluconazole [Diflucan] 150 mg PO ONCE #1 tab Forms: Patient Portal Access Time of Disposition: 17:32 Quality - Quality Measures Quality Measures: N/A - Blood Pressure Screening Does Patient Have Any of the Following: No Blood Pressure Classification: Pre-Hypertensive BP Reading Systolic Measurement: 137 Diastolic Measurement: 71 Screening for High Blood Pressure: < Pre-Hypertensive BP, F/U Documented > [ G8950] Pre-Hypertensive Follow-up Interventions: Referral to alternative/primary care provider.
== END 2018-07-29 17:44 | disposition home or self-care (01) ==
LOC: ER 15:37
DX: J01.31 Acute recurrent sphenoidal sinusitis (principal); J02.9 Acute pharyngitis, unspecified; Z87.891 Personal history of nicotine dependence
CPT/HCPCS: 99282

== ENCOUNTER 2018-11-24 02:17 | Emergency (ER) | payer MEDICAID ==
--- NOTE | 2018-11-24 02:38 | Emergency Department Record ---
History of Present Illness - General Chief Complaint: Cough Stated Complaint: THRUSH Time Seen by Provider: 11/24/18 02:32 Source: Patient Mode of Arrival: Ambulatory Limitations: No limitations - History of Present Illness Initial Comments: 28 yo female presents to ED for evaluation of congestion symptoms, drainage, and possible thrush. Patient denies fevers, chills, or productive cough symptoms. Patient reports using her inhaler tonight and is concerned about her asthma. Patient also reports recent migraine headaches. MD Complaint: Cough Onset/Timin -: Days(s) Severity: Moderate Consistency: Constant Improves With: Nothing Worsens With: Deep breaths Treatments Prior to Arrival: Other (albuterol) - Related Data Previous Rx's Medication Instructions Recorded Fexofenadine/Pseudoephedrine 1 each PO DAILY #15 tab.er.24h 11/24/18 [Sindhu-D 24 Hour Tablet] Allergies Allergy/AdvReac Type Severity Reaction Status Date / Time passion fruit Allergy Intermediate WHEEZING Unverified 08/16/18 10:48 cat dander Allergy Mild HIVES Unverified 08/16/18 10:48 dog dander Allergy Mild HIVES Unverified 08/16/18 10:48 grass pollen Allergy Mild HIVES Unverified 08/16/18 10:48 Travel Screening - Travel/Exposure Within Last 30 Days Have you traveled within the last 30 days?: No - Travel Symptoms Symptom Screening: None Review of Systems Constitutional: Denies: Chills, Fever, Malaise, Night sweats Eyes: Denies: Eye discharge, Eye pain ENT: Reports: Congestion, Throat pain. Denies: Ear pain, Epistaxis Respiratory: Reports: Cough. Denies: Dyspnea Cardiovascular: Denies: Chest pain, Dyspnea on exertion, Edema Endocrine: Denies: Fatigue, Heat or cold intolerance Gastrointestinal: Denies: Abdominal pain, Nausea, Vomiting Genitourinary: Denies: Incontinence, Retention Musculoskeletal: Denies: Arthralgia, Back pain Skin: Denies: Bruising, Change in color Neurological: Reports: Headache. Denies: Abnormal gait, Confusion, Seizure Psychiatric: Denies: Anxiety Hematological/Lymphatic: Denies: Anemia, Blood Clots Past Medical History - SOCIAL HISTORY Smoking Status: Former smoker Alcohol Use: Occasional Drug Use: None - RESPIRATORY Hx Respiratory Disorders: Yes Hx Asthma: Yes (exercise induced fair control no recent hospitalizations) Hx Bronchitis: Yes Hx Dyspnea: Yes Hx Pneumonia: Yes Hx Sleep Apnea: Yes (possibly unable to test due to "severe insomnia") Hx of CPAP: No - CARDIOVASCULAR Hx Cardio Disorders: No - NEURO Hx Neuro Disorders: Yes Hx of Migraines: Yes (daily) - GI Hx GI Disorders: Yes Hx Reflux: Yes (on meds good control) Hx Nausea/Vomiting: Yes (occassionally with periods) - Hx Genitourinary Disorders: No - ENDOCRINE Hx Endocrine Disorders: No - MUSCULOSKELETAL Hx Musculoskeletal Disorders: Yes Comment:: right carpal tunnel - PSYCH Hx Psych Problems: Yes Hx Anxiety: Yes (panic attacks 1-2 x's a week) - HEMATOLOGY/ONCOLOGY Hx Hematology/Oncology Disorders: No Family Medical History Any Significant Family History?: Yes Family Hx Comment (NOT TO BE USED IN PLACE OF ITEMS BELOW): Sister has Crohn's Hx Depression: Mother, Grandparents Hx Diabetes: Father, Mother, Brother/Sister, Grandparents Physical Exam - General General Appearance: Alert, Oriented x3, Cooperative, No acute distress Limitations: No limitations - Head Head exam: Atraumatic, Normocephalic, Normal inspection Head exam detail: negative: Abrasion, Contusion, Verduzco's sign, General tenderness, Hematoma, Laceration - Eye Eye exam: Normal appearance. negative: Conjunctival injection, Periorbital swelling, Periorbital tenderness, Scleral icterus - ENT ENT exam: Normal orophraynx Ear exam: negative: Auricular hematoma, Auricular trauma Nasal Exam: negative: Active bleeding, Discharge, Dried blood, Foreign body Mouth exam: Tongue normal. negative: Drooling, Laceration, Muffled voice, Tongue elevation Throat exam: negative: Tonsillar erythema, Tonsillomegaly, R peritonsillar mass , L peritonsillar mass - Neck Neck exam: Normal inspection. negative: Meningismus, Tenderness - Respiratory Respiratory exam: Normal lung sounds bilaterally. negative: Rales, Respiratory distress, Rhonchi, Stridor - Cardiovascular Cardiovascular Exam: Regular rate, Normal rhythm, Normal heart sounds - GI/Abdominal GI/Abdominal exam: Soft. negative: Rebound, Rigid, Tenderness - Rectal Rectal exam: Deferred - exam: Deferred - Extremities Extremities exam: Normal inspection. negative: Pedal edema, Tenderness - Back Back exam: Denies: CVA tenderness (R), CVA tenderness (L) - Neurological Neurological exam: Alert, Normal gait, Oriented X3 - Psychiatric Psychiatric exam: Normal affect, Normal mood - Skin Skin exam: Normal color. negative: Abrasion Type of lesion: negative: abrasion Course Vital Signs 11/24/18 11/24/18 02:22 02:24 Temperature 98.7 F 98.7 F Pulse Rate [ 115 H Pulse Ox Probe] Respiratory 20 20 Rate Blood Pressure 137/94 [Left Arm] Pulse Ox 96 96 - Reevaluation(s) Reevaluation #1: 11/24/18 02:36 Patient was seen and examined. No evidence of thrush on examination Lungs are clear on examination without wheezing, crackles Patient has no meningeal signs present on examination. Patient does have intermittent throat clearing more c/w congestion symptoms. Recommended decongestant for her symptoms, is otherwise well appearing and stable for discharge with instructions to follow-up with her PCP in 3-5 days as directed. Disposition Disposition: Discharge Clinical Impression: Congestion of throat URI (upper respiratory infection) Qualifiers: URI type: unspecified URI Qualified Code(s): J06.9 - Acute upper respiratory infection, unspecified Disposition: Home, Self-Care Condition: (2) Stable Instructions: Decongestant/Expectorant (By mouth) Additional Instructions: Return to ED if your symptoms worsen or if you have any concerns. Sindhu-D as directed. Follow-up with your family doctor in 3-5 days as directed. Prescriptions: Fexofenadine/Pseudoephedrine [Sindhu-D 24 Hour Tablet] 1 each PO DAILY #15 tab.er.24h Time of Disposition: 02:39 Quality - Quality Measures Quality Measures: N/A - Blood Pressure Screening Does Patient Have Any of the Following: No Blood Pressure Classification: Hypertensive Reading Systolic Measurement: 137 Diastolic Measurement: 94 Screening for High Blood Pressure: < First Hypertensive BP, F/U Documented > [ G8950] First Hypertensive Follow-up Interventions: Referral to alternative/primary care provider.
== END 2018-11-24 02:43 | disposition home or self-care (01) ==
LOC: ER 02:17
DX: R09.81 Nasal congestion (principal); J06.9 Acute upper respiratory infection, unspecified; R05 Cough; Z87.891 Personal history of nicotine dependence

== ENCOUNTER 2018-11-24 19:01 | Emergency (ER) | payer MEDICAID ==
[2018-11-24] MEDS ORDERED: FLUCONAZOLE 100 MG TABLET PO ONE (20:08)
--- NOTE | 2018-11-24 20:15 | Emergency Department Record ---
History of Present Illness - General Stated complaint: SORE THROAT Time Seen by Provider: 11/24/18 20:08 Source: Patient Mode of Arrival: Ambulatory Limitations: No limitations - History of Present Illness Initial comments: 28 yo female presents to ED for evaluation of worsening sore throat symptoms. Patient is concerned about possible strep vs. candidiasis. Patient uses an inhaled steroid for her asthma symptoms, reports previous history of thrush as a result. Patient denies fevers, chills, or cough symptoms. MD complaint: Sore throat Onset/Timin -: Days(s) Severity: Moderate Quality: Aching Consistency: Constant Improves with: None Worsens with: Swallowing Context-Epistaxis: History of similar - Related Data Previous Rx's Medication Instructions Recorded Fexofenadine/Pseudoephedrine 1 each PO DAILY #15 tab.er.24h 11/24/18 [Sindhu-D 24 Hour Tablet] Fluconazole [Diflucan] 150 mg PO DAILY #13 tablet 11/24/18 Allergies Allergy/AdvReac Type Severity Reaction Status Date / Time passion fruit Allergy Intermediate WHEEZING Verified 11/24/18 20:29 cat dander Allergy Mild HIVES Verified 11/24/18 20:29 dog dander Allergy Mild HIVES Verified 11/24/18 20:29 grass pollen Allergy Mild HIVES Verified 11/24/18 20:29 Review of Systems Constitutional: Denies: Chills, Fever, Malaise, Night sweats Eyes: Denies: Eye discharge, Eye pain ENT: Reports: Throat pain. Denies: Congestion, Ear pain, Epistaxis Respiratory: Denies: Cough, Dyspnea Cardiovascular: Denies: Chest pain, Dyspnea on exertion Endocrine: Denies: Fatigue, Heat or cold intolerance Gastrointestinal: Denies: Abdominal pain, Nausea, Vomiting Genitourinary: Denies: Incontinence, Retention Musculoskeletal: Denies: Arthralgia, Back pain Skin: Denies: Bruising, Change in color Neurological: Denies: Abnormal gait, Confusion, Headache, Seizure Psychiatric: Denies: Anxiety Hematological/Lymphatic: Denies: Anemia, Blood Clots Past Medical History - SOCIAL HISTORY Smoking Status: Former smoker Drug Use: None - RESPIRATORY Hx Respiratory Disorders: Yes Hx Asthma: Yes (exercise induced fair control no recent hospitalizations) Hx Bronchitis: Yes Hx Dyspnea: Yes Hx Pneumonia: Yes Hx Sleep Apnea: Yes (possibly unable to test due to "severe insomnia") Hx of CPAP: No - CARDIOVASCULAR Hx Cardio Disorders: No - NEURO Hx Neuro Disorders: Yes Hx of Migraines: Yes (daily) - GI Hx GI Disorders: Yes Hx Reflux: Yes (on meds good control) Hx Nausea/Vomiting: Yes (occassionally with periods) - Hx Genitourinary Disorders: No - ENDOCRINE Hx Endocrine Disorders: No - MUSCULOSKELETAL Hx Musculoskeletal Disorders: Yes Comment:: right carpal tunnel - PSYCH Hx Psych Problems: Yes Hx Anxiety: Yes (panic attacks 1-2 x's a week) - HEMATOLOGY/ONCOLOGY Hx Hematology/Oncology Disorders: No Family Medical History Family Hx Comment (NOT TO BE USED IN PLACE OF ITEMS BELOW): Sister has Crohn's Hx Depression: Mother, Grandparents Hx Diabetes: Father, Mother, Brother/Sister, Grandparents Physical Exam - General General Appearance: Alert, Oriented x3, Cooperative, Moderate distress, Other ( Hoarse voice on examinationl, no respiratory distress noted on examination. Patient does have a whitish coating to the tongue on this visit that was not present earlier this morning.) Limitations: No limitations - Head Head exam: Atraumatic, Normocephalic, Normal inspection Head exam detail: negative: Abrasion, Contusion, Verduzco's sign, General tenderness, Hematoma, Laceration - Eye Eye exam: Normal appearance. negative: Conjunctival injection, Periorbital swelling, Periorbital tenderness, Scleral icterus - ENT Ear exam: negative: Auricular hematoma, Auricular trauma Nasal Exam: negative: Active bleeding, Discharge, Dried blood, Foreign body Mouth exam: Other (White-colored plaque to the tongue present on examination.). negative: Drooling, Laceration, Muffled voice, Tongue elevation - Neck Neck exam: Normal inspection. negative: Meningismus, Tenderness - Respiratory Respiratory exam: Normal lung sounds bilaterally. negative: Rales, Respiratory distress, Rhonchi, Stridor - Cardiovascular Cardiovascular Exam: Regular rate, Normal rhythm, Normal heart sounds - GI/Abdominal GI/Abdominal exam: Soft. negative: Rebound, Rigid, Tenderness - Rectal Rectal exam: Deferred - exam: Deferred - Extremities Extremities exam: Normal inspection. negative: Pedal edema, Tenderness - Back Back exam: Denies: CVA tenderness (R), CVA tenderness (L) - Neurological Neurological exam: Alert, Normal gait, Oriented X3 - Psychiatric Psychiatric exam: Normal affect, Normal mood - Skin Skin exam: Normal color. negative: Abrasion Type of lesion: negative: abrasion Course - Reevaluation(s) Reevaluation #1: 11/24/18 20:30 Rapid strep: negative Patient's symptoms appear c/w oral thrush. Will prescribe Diflucan 150 mg daily for 13 days per recommendations, patient appears stable for discharge at this time. Disposition Disposition: Discharge Clinical Impression: Oral thrush Disposition: Home, Self-Care Condition: (2) Stable Instructions: Oral Candidiasis (ED) Additional Instructions: Return to ED if your symptoms worsen or if you have any concerns. Diflucan as directed. Follow-up with your family doctor in 3-5 days as directed. Prescriptions: Fluconazole [Diflucan] 150 mg PO DAILY #13 tablet Forms: Patient Portal Access Time of Disposition: 20:32 Quality - Quality Measures Quality Measures: N/A - Blood Pressure Screening Does Patient Have Any of the Following: No Blood Pressure Classification: Hypertensive Reading Systolic Measurement: 118 Diastolic Measurement: 92 Screening for High Blood Pressure: < First Hypertensive BP, F/U Documented > [ G8950] First Hypertensive Follow-up Interventions: Referral to alternative/primary care provider.
== END 2018-11-24 20:37 | disposition home or self-care (01) ==
LOC: ER 19:01
DX: B37.0 Candidal stomatitis (principal); J02.9 Acute pharyngitis, unspecified; R09.81 Nasal congestion; R06.9 Unspecified abnormalities of breathing; R05 Cough; Z87.891 Personal history of nicotine dependence
CPT/HCPCS: 87880; 99282; 99283

== ENCOUNTER 2019-01-15 10:44 | Emergency (ER) | payer MEDICAID ==
[2019-01-15] MEDS ORDERED: 0.9 % SODIUM CHLORIDE 1000ML 1,000 ML IV ONE (10:56)
[2019-01-15] MEDS ORDERED: ONDANSETRON HCL IV 4 MG/2 ML VIAL IVP ONE (10:56)
--- NOTE | 2019-01-15 11:04 | Emergency Department Record ---
History of Present Illness - General Chief complaint: Nausea, Vomiting, Diarrhea Stated complaint: NAUSEA WORSE Time Seen by Provider: 01/15/19 10:47 Source: Patient Mode of Arrival: Ambulatory Limitations: No limitations - History of Present Illness Initial comments: 28 yo female presents with three months of abdominal pain with daily diarrhea of 3-4 stools. No blood. No fever. She has seen her PCP. She is in the process of getting an out patient referral. The last three days she has developed nausea with vomiting. No blood. The pain she has is mid to lower abdomen and goes across the abdomen. No abdominal surgery history. The patient has been on antibiotics. She has not had any imaging or stool studies. She states she was treated with an antibiotic for the diarrhea. PCP is ELMIRA RICHMOND. MD complaint: Abdominal pain, Diarrhea, Nausea, Vomiting Onset/Timin -: Month(s) Description of Vomiting: Watery Description of Diarrhea: Water Associated Abdominal Pain: Yes Location: Diffuse Radiation: None Severity scale (1-10): 5 Quality: Aching, Cramping Consistency: Constant, Intermittent Improves with: None Worsens with: None Context: Recent anitbiotic use, Other Associated Symptoms: Nausea/vomiting - Related Data Previous Rx's Medication Instructions Recorded Omeprazole [Prilosec] 20 mg PO DAILY #30 cap 01/15/19 Ondansetron [Zofran Odt] 4 mg PO Q8H #15 tab.rapdis 01/15/19 Allergies Allergy/AdvReac Type Severity Reaction Status Date / Time passion fruit Allergy Intermediate WHEEZING Verified 01/15/19 12:20 cat dander Allergy Mild HIVES Verified 01/15/19 12:20 dog dander Allergy Mild HIVES Verified 01/15/19 12:20 grass pollen Allergy Mild HIVES Verified 01/15/19 12:20 Travel Screening - Travel/Exposure Within Last 30 Days Have you traveled within the last 30 days?: No Review of Systems Constitutional: Denies: Chills, Fever, Malaise, Weakness Eyes: Denies: Eye discharge ENT: Denies: Congestion, Throat pain Respiratory: Denies: Cough, Dyspnea Cardiovascular: Denies: Chest pain, Syncope Endocrine: Denies: Fatigue, Polydipsia, Polyuria Gastrointestinal: Reports: Abdominal pain, Diarrhea, Nausea, Vomiting. Denies: Hematemesis, Hematochezia Genitourinary: Reports: Abnormal menses (just finished but was 10 days off, not unusual) Musculoskeletal: Denies: Arthralgia, Back pain, Neck pain Skin: Denies: Bruising, Change in color, Rash Neurological: Denies: Headache Psychiatric: Denies: Anxiety Hematological/Lymphatic: Denies: Easy bleeding, Easy bruising Past Medical History - SOCIAL HISTORY Smoking Status: Former smoker - RESPIRATORY Hx Respiratory Disorders: Yes Hx Asthma: Yes (exercise induced fair control no recent hospitalizations) Hx Bronchitis: Yes Hx Dyspnea: Yes Hx Pneumonia: Yes Hx Sleep Apnea: Yes (possibly unable to test due to "severe insomnia") Hx of CPAP: No - CARDIOVASCULAR Hx Cardio Disorders: No - NEURO Hx Neuro Disorders: Yes Hx of Migraines: Yes (daily) - GI Hx GI Disorders: Yes Hx Reflux: Yes (on meds good control) Hx Nausea/Vomiting: Yes (occassionally with periods) - Hx Genitourinary Disorders: No - ENDOCRINE Hx Endocrine Disorders: No - MUSCULOSKELETAL Hx Musculoskeletal Disorders: Yes Comment:: right carpal tunnel - PSYCH Hx Psych Problems: Yes Hx Anxiety: Yes (panic attacks 1-2 x's a week) - HEMATOLOGY/ONCOLOGY Hx Hematology/Oncology Disorders: No Family Medical History Any Significant Family History?: Yes Family Hx Comment (NOT TO BE USED IN PLACE OF ITEMS BELOW): Sister has Crohn's Hx Depression: Mother, Grandparents Hx Diabetes: Father, Mother, Brother/Sister, Grandparents Physical Exam - General General Appearance: Alert, Oriented x3, Cooperative, No acute distress Limitations: No limitations - Head Head exam: Atraumatic, Normal inspection - Eye Eye exam: Normal appearance, PERRL. negative: Conjunctival injection, Scleral icterus - ENT ENT exam: Normal exam, Mucous membranes moist Ear exam: Normal external inspection Nasal Exam: Normal inspection Mouth exam: Normal external inspection - Neck Neck exam: Normal inspection - Respiratory Respiratory exam: Normal lung sounds bilaterally. negative: Respiratory dis tress - Cardiovascular Cardiovascular Exam: Regular rate, Normal rhythm, Normal heart sounds - GI/Abdominal GI/Abdominal exam: Soft, Tenderness (very soft , mildly tender lower but no rebound or guarding). negative: Distended, Guarding, Rebound, Rigid - Rectal Rectal exam: Deferred - exam: Deferred - Extremities Extremities exam: Normal inspection. negative: Tenderness - Back Back exam: Denies: CVA tenderness (R), CVA tenderness (L) - Neurological Neurological exam: Alert, Oriented X3 - Psychiatric Psychiatric exam: Normal affect, Normal mood. negative: Agitated, Anxious - Skin Skin exam: Dry, Intact, Normal color, Warm Course Vital Signs 01/15/19 10:49 Temperature 98.6 F Pulse Rate 108 H Respiratory 20 Rate Blood Pressure 121/84 Pulse Ox 97 - Reevaluation(s) Reevaluation #1: 01/15/19 11:14 The CBC was reviewed. No acute abnormality. 01/15/19 11:32 The CMP and Lipase are normal 01/15/19 12:18 UA contamination without signs of infection UCG is negative 01/15/19 14:[address] demonstrated 7.2cm LOC otherwise negative 01/15/19 14:28 The results were discussed with the patient A pelvic US was ordered 01/15/19 15:57 The US demonstrated a 5 cm hemorrhagic cyst otherwise normal The patient was given a stool study lab slip since to diarrhea in the ED She was referred to her PCP and [facility] Medical Decision Making - Lab Data Result diagrams: 01/15/19 11:05 01/15/19 11:05 Disposition Disposition: Discharge Clinical Impression: Vomiting and diarrhea Abdominal pain Qualifiers: Abdominal location: left lower quadrant Qualified Code(s): R10.32 - Left lower quadrant pain Ovarian cyst Qualifiers: Laterality: left Qualified Code(s): N83.202 - Unspecified ovarian cyst, left side Disposition: Home, Self-Care Condition: (1) Good Instructions: Ovarian Cyst (ED), Acute Nausea and Vomiting (ED), Chronic Diarrhea (ED) Additional Instructions: Call your doctor for the next available follow up appointment Review this ER visit and the tests performed with your family doctor Return to the ER for a recheck if worse, any new concerns or questions Take the prescriptions provided as directed Prescriptions: Omeprazole [Prilosec] 20 mg PO DAILY #30 cap. Ondansetron [Zofran Odt] 4 mg PO Q8H #15 tab.rapdis Referrals: [facility] [Provider Group] Paty Guzman D.O. [DOCTOR OF OSTEOPATH] - Forms: Patient Portal Access Time of Disposition: 15:57 Quality - Quality Measures Quality Measures: N/A - Blood Pressure Screening Does Patient Have Any of the Following: No Blood Pressure Classification: Pre-Hypertensive BP Reading Systolic Measurement: 121 Diastolic Measurement: 84 Screening for High Blood Pressure: < Pre-Hypertensive BP, F/U Documented > [G8950] Pre-Hypertensive Follow-up Interventions: Referral to alternative/primary care provider.
[2019-01-15 11:10] LABS: ABSOLUTE NEUTROPHIL COUNT 3.06; BASO % 0.5 % (0-6); GRAN % 46.5 % (47-80); HEMATOCRIT 38.1 % (35.0-47.0); HEMOGLOBIN 12.1 gm/dl (11.6-16.0); LYMPH % 41.4 % (16-45); MEAN CORPUSCULAR HEMOGLOBIN 28.3 pg (27-33); MEAN CORPUSCULAR HGB CONC 31.8 g/dl (32-36); MEAN PLATELET VOLUME 9.1 fl (7.4-10.4); MONO % 9.6 % (0-9); PLATELET COUNT 295 K/uL (130-400); RED BLOOD COUNT 4.28 M/uL (3.80-5.40); RED CELL DISTRIBUTION WIDTH 13.3 % (11.5-14.5); WHITE BLOOD COUNT W/O DIFF 6.6 K/uL (4.2-12.2)
[2019-01-15 11:19] LABS: BILIRUBIN,TOTAL < 0.20 mg/dL (0.2-1.0); BLOOD UREA NITROGEN 13 mg/dL (6-20); CREATININE 0.6 mg/dL (0.5-0.9); EST GLOMERULAR FILTRATION RATE > 60 mL/min
[2019-01-15 11:20] LABS: LIPASE 24 U/L (13-60); TOTAL PROTEIN 6.6 g/dL (6.6-8.7)
[2019-01-15 11:22] LABS: GLUCOSE,RANDOM 108 mg/dL (74-109)
[2019-01-15 11:25] LABS: ALB/GLOB RATIO 1.5 (1.1-1.8); ALKALINE PHOSPHATASE 66 U/L (35-104); ALT/SGPT 38 U/L (<33); AST/SGOT 28 U/L (10.0-35.0)
[2019-01-15 11:45] LABS: URINE APPEARANCE CLEAR; URINE BILIRUBIN NEGATIVE (NEGATIVE); URINE BLOOD TRACE-I (NEGATIVE); URINE COLOR YELLOW; URINE GLUCOSE (UA) NEGATIVE (NEGATIVE); URINE KETONE NEGATIVE (NEGATIVE); URINE LEUKOCYTE ESTERASE NEGATIVE (NEGATIVE); URINE NITRITE NEGATIVE (NEGATIVE); URINE PROTEIN NEGATIVE (NEGATIVE); URINE UROBILINOGEN 0.2 E.U./dL (0.20 - 1.00)
[2019-01-15 11:52] LABS: HCG,QUALITATIVE URINE NEGATIVE (NEGATIVE); URINE BACTERIA NONE SEEN; URINE EPITHELIAL CELLS 21 - 35 (FEW)
[2019-01-15] MEDS ORDERED: 0.9 % SODIUM CHLORIDE 1,000 ML BAG IV ONE (14:27)
--- NOTE | 2019-01-17 09:18 | CT SCAN REPORT ---
EXAM: CT OF THE ABDOMEN AND PELVIS WITH CONTRAST HISTORY: LEFT LOWER QUADRANT PAIN. TECHNIQUE: Sequential axial images were obtained from the diaphragms through the ischiorectal fossa after intravenous administration of 100 ml of Omnipaque 300 contrast material. Oral contrast was administered. Comparison: 12/07/16. FINDINGS: The visualized lung bases appear normal. The liver appears homogeneous. No gallstones or ductal dilatation. The pancreas and spleen appear normal. The adrenal glands and kidneys appear normal. No CT findings suggestive of obstructive uropathy. The small and large bowel appears normal. The appendix is visualized and appears normal. The urinary bladder appears normal. The uterus appears normal. There is a large left ovarian cyst measuring 7.8 cm. The osseous structures are normal. IMPRESSION: 1. 7.8 CM LEFT OVARIAN CYST. 2. THE APPENDIX IS VISUALIZED AND APPEARS NORMAL. 3. NO CT FINDINGS SUGGESTIVE OF OBSTRUCTIVE UROPATHY. JOB NUMBER: [id number] MTDD
--- NOTE | 2019-01-17 10:11 | ULTRASOUND REPORT ---
EXAM: PELVIC ULTRASOUND HISTORY: ENDOMETRIOSIS. TECHNIQUE: Transvaginal and transabdominal sonographic evaluation of the pelvis was performed using das scale imaging with the addition of color flow Doppler and spectral analysis. FINDINGS: The uterus is normal in position. The uterus measures 8.4 x 2.5 x 4.5 cm. The endometrial stripe measures 5 mm. The right ovary measures 2.7 x 1.7 x 1.5 cm. The left ovary measures 8.0 x 5.6 x 6.0 cm. There is a hemorrhagic cyst in the left ovary measuring 5.8 x 7.5 x 5.2 cm. There is normal arterial and venous flow to both ovaries. No free fluid in the cul-de-sac. IMPRESSION: HEMORRHAGIC CYST IN THE LEFT OVARY MEASURING 5.8 X 7.5 X 5.2 CM. JOB NUMBER: [id number] MTDD
== END 2019-01-15 16:23 | disposition home or self-care (01) ==
LOC: ER 10:44
DX: N83.202 Unspecified ovarian cyst, left side (principal); R11.2 Nausea with vomiting, unspecified; R19.7 Diarrhea, unspecified; R10.32 Left lower quadrant pain; Z87.891 Personal history of nicotine dependence
CPT/HCPCS: 99284 ×2; 96374; 96361; 83690; 85025; 80053; 81001; 81025; 76856; 76830; 74177; Q9967; J2405; J7030

== ENCOUNTER 2019-03-28 08:11 | Day surgery (SDC) | payer MEDICAID ==
[2019-03-28] MEDS ORDERED: PROPOFOL 10 MG/ML VIAL IV ONE (08:12)
[2019-03-28] MEDS ORDERED: LIDOCAINE 2% MDV (20MG/ML) 20ML VIAL IV ONE (08:12)
--- NOTE | 2019-03-29 07:12 | Operative Note ---
OPERATION: COLONOSCOPY with random biopsy and photo. PREOPERATIVE DIAGNOSIS: Chronic diarrhea of unclear etiology. POSTOPERATIVE DIAGNOSIS: Normal terminal ileal colonoscopy, rule out microscopic colitis. PROCEDURE: After informed consent was obtained from the patient, she was placed in the left lateral decubitus position in the endoscopy suite, sedated and monitored by the department of anesthesia. Digital rectal exam was unremarkable. A well-lubricated [id number] colonoscope was inserted into the rectum and advanced to the cecum. The cecum, cecal bulb, distal portion of the terminal ileum, ascending colon, transverse colon, descending colon, sigmoid colon, and rectum were unremarkable. Forward and J-turn views of the rectum and anorectum were unrevealing. The endoscope was straightened, the rectal ampulla deflated, and the endoscope was removed. It should be noted that random biopsies were obtained throughout the length of the colon to rule out microscopic colitis. RECOMMENDATIONS: We will await the results of tissue histology. If the biopsies are negative, then I would suspect that patient may have a component of irritable bowel and functional diarrhea, for which consideration of using an antispasmodic such as Robinul 1 mg 3 times daily might be helpful. Further recommendations based on tissue histology. As always, thank you for allowing me to participate in the healthcare of your patients. LUBA
== END 2019-03-28 09:55 | disposition home or self-care (01) ==
LOC: HOP 08:11
PROVIDERS: ATTEND Internal Medicine Gastroenterology
DX: K52.9 Noninfective gastroenteritis and colitis, unspecified (principal); Z83.79 Family history of other diseases of the digestive system; M54.9 Dorsalgia, unspecified; J45.909 Unspecified asthma, uncomplicated
CPT/HCPCS: 81025

== ENCOUNTER 2019-05-29 22:08 | Emergency (ER) | payer MEDICAID ==
[2019-05-29] MEDS ORDERED: METHYLPREDNISOLONE PF 125MG/VIAL IM ONE (22:14)
[2019-05-29] MEDS ORDERED: IPRATROPIUM/ALBUTEROL (0.5MG/3MG) NEB INH ONE (22:14)
--- NOTE | 2019-05-29 22:19 | Emergency Department Record ---
History of Present Illness - General Chief Complaint: Shortness of breath Stated Complaint: LEIGH Time Seen by Provider: 05/29/19 22:10 Source: Patient Mode of Arrival: Ambulatory Limitations: No limitations - History of Present Illness Initial Comments: 29 yo female presents to ED for evaluation of difficulty in breathing that began "2 months ago". Patient reports a history of asthma, was treated for an exacerbation of her asthma 1 month ago with prednisone which did improve her symptoms for a short time. Patient denies chest discomfort or lower extremity edema, denies fevers, chills, or cough symptoms. Patient does report wheezing at home, reports using her rescue inhaler more ofter for the past several days. Patient has an appointment with toggle press operator next week as well. MD Complaint: Shortness of breath Onset/Timin -: Month(s) Severity: Moderate Quality: Other (Wheezing) Consistency: Intermittent Improves With: Bronchodilators Worsens With: Exertion Known History Of: Asthma Associated Symptoms: Denies other symptoms Treatments Prior to Arrival: Bronchodilator - Related Data Home Oxygen Therapy: No Previous Rx's Medication Instructions Recorded Ondansetron [Zofran Odt] 4 mg PO Q8H #15 tab.rapdis 01/15/19 Prednisone [Prednisone 20Mg] 20 mg PO BID #12 tab 05/29/19 Allergies Allergy/AdvReac Type Severity Reaction Status Date / Time passion fruit Allergy Intermediate WHEEZING Unverified 05/15/19 14:08 cat dander Allergy Mild HIVES Unverified 05/15/19 14:08 dog dander Allergy Mild HIVES Unverified 05/15/19 14:08 grass pollen Allergy Mild HIVES Unverified 05/15/19 14:08 Review of Systems Constitutional: Denies: Chills, Fever, Malaise, Night sweats Eyes: Denies: Eye discharge, Eye pain ENT: Denies: Congestion, Ear pain, Epistaxis Respiratory: Reports: Dyspnea, Wheezes. Denies: Cough Cardiovascular: Denies: Chest pain, Dyspnea on exertion Endocrine: Denies: Fatigue, Heat or cold intolerance Gastrointestinal: Denies: Abdominal pain, Nausea, Vomiting Genitourinary: Denies: Incontinence, Retention Musculoskeletal: Denies: Arthralgia, Back pain Skin: Denies: Bruising, Change in color Neurological: Denies: Abnormal gait, Confusion, Headache, Seizure Psychiatric: Denies: Anxiety Hematological/Lymphatic: Denies: Anemia, Blood Clots Past Medical History - SOCIAL HISTORY Smoking Status: Former smoker - RESPIRATORY Hx Respiratory Disorders: Yes Hx Asthma: Yes (exercise induced fair control no recent hospitalizations) Hx Bronchitis: Yes Hx Dyspnea: Yes Hx Pneumonia: Yes Hx Sleep Apnea: Yes (possibly unable to test due to "severe insomnia") Hx of CPAP: No - CARDIOVASCULAR Hx Cardio Disorders: No - NEURO Hx Neuro Disorders: Yes Hx of Migraines: Yes (daily) - GI Hx GI Disorders: Yes Hx Reflux: Yes (on meds good control) Hx Nausea/Vomiting: Yes (occassionally with periods) Comment:: chronic diarrhea - Hx Genitourinary Disorders: No - ENDOCRINE Hx Endocrine Disorders: No - MUSCULOSKELETAL Hx Musculoskeletal Disorders: Yes Comment:: right carpal tunnel - PSYCH Hx Psych Problems: Yes Hx Anxiety: Yes (panic attacks 1-2 x's a week) - HEMATOLOGY/ONCOLOGY Hx Hematology/Oncology Disorders: No Family Medical History Family Hx Comment (NOT TO BE USED IN PLACE OF ITEMS BELOW): Sister has Crohn's Hx Depression: Mother, Grandparents Hx Diabetes: Father, Mother, Brother/Sister, Grandparents Physical Exam - General General Appearance: Alert, Oriented x3, Cooperative, Mild distress Limitations: No limitations - Head Head exam: Atraumatic, Normocephalic, Normal inspection Head exam detail: negative: Abrasion, Contusion, Verduzco's sign, General tenderness, Hematoma, Laceration - Eye Eye exam: Normal appearance. negative: Conjunctival injection, Periorbital swelling, Periorbital tenderness, Scleral icterus - ENT Ear exam: negative: Auricular hematoma, Auricular trauma Nasal Exam: negative: Active bleeding, Discharge, Dried blood, Foreign body Mouth exam: negative: Drooling, Laceration, Muffled voice, Tongue elevation - Neck Neck exam: Normal inspection. negative: Meningismus, Tenderness - Respiratory Respiratory exam: Prolonged expiratory, Wheezes. negative: Decreased breath sounds, Rales, Respiratory distress, Rhonchi, Stridor - Cardiovascular Cardiovascular Exam: Regular rate, Normal rhythm, Normal heart sounds - GI/Abdominal GI/Abdominal exam: Soft. negative: Rebound, Rigid, Tenderness - Rectal Rectal exam: Deferred - exam: Deferred - Extremities Extremities exam: Normal inspection. negative: Pedal edema, Tenderness - Back Back exam: Denies: CVA tenderness (R), CVA tenderness (L) - Neurological Neurological exam: Alert, Normal gait, Oriented X3 - Psychiatric Psychiatric exam: Normal affect, Normal mood - Skin Skin exam: Normal color. negative: Abrasion Type of lesion: negative: abrasion Course - Reevaluation(s) Reevaluation #1: 05/29/19 22:36 EKG: NSR 99 Normal axis, normal intervals No acute ST-T wave changes Reevaluation #2: 05/29/19 22:56 CXR: No acute process Patient was updated on all results (EKG/CXR), reports improvement in her symptoms. Patient has an appointment with her toggle press operator in 5 days. Patient has no calf pain, swelling, OCP use, or chest discomfort symptoms, and patient's wheezing symptoms and LEIGH are reversible on examination. Patient has no significant risk factor for DVT/PE based on her history and examination. Will treat with Prednisone for 8 days (longer duration than burst) with instructions to follow-up with her Dr. López as scheduled on 06/03. Disposition Disposition: Discharge Clinical Impression: Bronchospasm Disposition: Home, Self-Care Condition: (2) Stable Instructions: Bronchospasm (ED) Additional Instructions: Return to ED if your symptoms worsen or if you have any concerns. Prednisone as directed. Follow-up with Dr. López as scheduled on 06/03. Prescriptions: Prednisone [Prednisone 20Mg] 20 mg PO BID #12 tab Forms: Patient Portal Access Time of Disposition: 23:01 Quality - Quality Measures Quality Measures: N/A - Blood Pressure Screening Does Patient Have Any of the Following: No Blood Pressure Classification: Hypertensive Reading Systolic Measurement: 140 Diastolic Measurement: 101 Screening for High Blood Pressure: < First Hypertensive BP, F/U Documented > [G8950] First Hypertensive Follow-up Interventions: Referral to alternative/primary care provider.
--- NOTE | 2019-05-29 23:01 | RADIOLOGY REPORT ---
EXAMINATION: Two View Chest Radiographs EXAM DATE: 05/29/2019 10:53 PM TECHNIQUE: Frontal and lateral views INDICATION: LEIGH, wheezing COMPARISON: None ENCOUNTER: Not applicable FINDINGS: The heart, mediastinum, and pulmonary vasculature are normal. No lung consolidation or pleural effu sions are present. IMPRESSION: No acute pulmonary disease process Dictated by: Rachelle Segura DO on 05/29/2019 10:58 PM. .
== END 2019-05-29 23:07 | disposition home or self-care (01) ==
LOC: ER 22:08
DX: J98.01 Acute bronchospasm (principal); Z87.891 Personal history of nicotine dependence
CPT/HCPCS: 71046; 93005; 93010; 94640; 96372; 99284; J2930

== ENCOUNTER 2019-06-27 08:44 | Emergency (ER) | payer MEDICAID ==
--- NOTE | 2019-06-27 08:58 | Emergency Department Record ---
History of Present Illness - General Chief complaint: Dental Stated complaint: Dental Pain Time Seen by Provider: 06/27/19 08:45 Source: Patient Mode of Arrival: Ambulatory Limitations: No limitations - History of Present Illness Initial comments: The patient is here due to L lower molar tenderness for 2 days. There is no swelling or drainage. The patient does have a hx of a bad tooth and does have an appointment in 3 weeks. MD complaint: Tooth pain Onset/Timin -: Days(s) 1 - Area of pain and dental tenderness. Neg for gum line swelling or abscess. Severity: Moderate Severity scale (1-10): 8 Quality: Aching Consistency: Constant Improves with: None Worsens with: None - Related Data Previous Rx's Medication Instructions Recorded Naproxen [Naprosyn] 500 mg PO BID #14 tablet. 06/27/19 Penicillin V Potassium 500 mg PO QID #28 tablet 06/27/19 Allergies Allergy/AdvReac Type Severity Reaction Status Date / Time passion fruit Allergy Intermediate WHEEZING Verified 06/27/19 08:49 cat dander Allergy Mild HIVES Verified 06/27/19 08:49 dog dander Allergy Mild HIVES Verified 06/27/19 08:49 grass pollen Allergy Mild HIVES Verified 06/27/19 08:49 Travel Screening - Travel/Exposure Within Last 30 Days Have you traveled within the last 30 days?: No - Travel/Exposure Within Last Year Have you traveled outside the [place] in the last year?: No - Additonal Travel Details Have you been exposed to anyone with a communicable illness?: No - Travel Symptoms Symptom Screening: None Review of Systems Constitutional: Denies: Chills, Fever Eyes: Denies: Eye discharge ENT: Denies: Congestion Respiratory: Denies: Cough, Dyspnea Past Medical History - SOCIAL HISTORY Smoking Status: Former smoker Alcohol Use: Occasional Drug Use: None - RESPIRATORY Hx Respiratory Disorders: Yes Hx Asthma: Yes (exercise induced fair control no recent hospitalizations) Hx Bronchitis: Yes Hx Dyspnea: Yes Hx Pneumonia: Yes Hx Sleep Apnea: Yes (possibly unable to test due to "severe insomnia") Hx of CPAP: No - CARDIOVASCULAR Hx Cardio Disorders: No - NEURO Hx Neuro Disorders: Yes Hx of Migraines: Yes (daily) - GI Hx GI Disorders: Yes Hx Reflux: Yes (on meds good control) Hx Nausea/Vomiting: Yes (occassionally with periods) Comment:: chronic diarrhea - Hx Genitourinary Disorders: No - ENDOCRINE Hx Endocrine Disorders: No - MUSCULOSKELETAL Hx Musculoskeletal Disorders: Yes Comment:: right carpal tunnel - PSYCH Hx Psych Problems: Yes Hx Anxiety: Yes (panic attacks 1-2 x's a week) - HEMATOLOGY/ONCOLOGY Hx Hematology/Oncology Disorders: No Family Medical History Any Significant Family History?: Yes Family Hx Comment (NOT TO BE USED IN PLACE OF ITEMS BELOW): Sister has Crohn's Hx Depression: Mother, Grandparents Hx Diabetes: Father, Mother, Brother/Sister, Grandparents Physical Exam - General General Appearance: Alert, Oriented x3, Cooperative, No acute distress - Head Head exam: Atraumatic, Normocephalic - Eye Eye exam: Normal appearance, PERRL - ENT ENT exam: Normal exam, Mucous membranes moist, Normal external ear exam, Normal orophraynx, TM's normal bilaterally Mouth exam: Normal external inspection Teeth exam: Normal inspection, Dental tenderness # (19. There is no swelling or abscess identified.). negative: Dental caries Throat exam: Normal inspection. negative: Tonsillar erythema, Tonsillar exudate - Neck Neck exam: Normal inspection, Full ROM. negative: Tenderness Course Vital Signs 06/27/19 08:52 Temperature 98.8 F Pulse Rate [ 101 H Apical] Respiratory 20 Rate Blood Pressure 146/96 [Right Arm] Pulse Ox 96 - Reevaluation(s) Reevaluation #1: I did explain to the patient the need to take the Pen VK and Naprosyn and to see her Dentist GRIS. 06/27/19 09:01 Disposition Disposition: Discharge Clinical Impression: Dental infection Disposition: Home, Self-Care Condition: (2) Stable Instructions: Toothache (ED) Additional Instructions: Please take the Pen VK and Naprosyn for pain. Please see your Dentist GRIS. Return to the ER for any worsening symptoms. Prescriptions: Naproxen [Naprosyn] 500 mg PO BID #14 tablet. Penicillin V Potassium 500 mg PO QID #28 tablet Forms: Patient Portal Access Time of Disposition: 08:58 Quality - Quality Measures Quality Measures: N/A - Blood Pressure Screening View Details: Yes Does Patient Have Any of the Following: No Blood Pressure Classification: Hypertensive Reading Systolic Measurement: 146 Diastolic Measurement: 96 Screening for High Blood Pressure: < First Hypertensive BP, F/U Documented > [G8950] First Hypertensive Follow-up Interventions: Referral to alternative/primary care provider.
== END 2019-06-27 09:07 | disposition home or self-care (01) ==
LOC: ER 08:44
DX: K04.7 Periapical abscess without sinus (principal)
CPT/HCPCS: 99283

== ENCOUNTER 2019-07-21 07:36 | Emergency (ER) | payer MEDICAID ==
--- NOTE | 2019-07-21 08:08 | Emergency Department Record ---
History of Present Illness - General Chief complaint: ENT Stated complaint: ENT Time Seen by Provider: 07/21/19 07:50 Source: Patient Mode of Arrival: Ambulatory Limitations: No limitations - History of Present Illness Initial comments: pt has congestion, sore throat, r ear pain, cough, facial pressure. she is coughing up and blowing out xochitl green complaint: Ear pain, Sore throat Onset/Timin -: Week(s) Location: R ear Quality: Aching Improves with: None Worsens with: Swallowing Associated Symptoms: Cough, Pain with swallowing, Sore throat - Related Data Previous Rx's Medication Instructions Recorded Azithromycin [Zithromax] 250 mg PO DAILY #6 tab 07/21/19 Miconazole Nitrate [Monistat] 45 gm VG BID #1 tube 07/21/19 Allergies Allergy/AdvReac Type Severity Reaction Status Date / Time passion fruit Allergy Intermediate WHEEZING Verified 07/21/19 07:47 cat dander Allergy Mild HIVES Verified 07/21/19 07:47 dog dander Allergy Mild HIVES Verified 07/21/19 07:47 grass pollen Allergy Mild HIVES Verified 07/21/19 07:47 Travel Screening - Travel/Exposure Within Last 30 Days Have you traveled within the last 30 days?: No - Travel/Exposure Within Last Year Have you traveled outside the [place] in the last year?: No - Additonal Travel Details Have you been exposed to anyone with a communicable illness?: No - Travel Symptoms Symptom Screening: Headache Review of Systems Reviewed: No additional complaints except as noted below Constitutional: Reports: As per HPI. Denies: Chills, Fever, Malaise, Night sweats, Weakness, Weight change Eyes: Reports: As per HPI. Denies: Eye discharge, Eye pain, Photophobia, Vision change ENT: Reports: As per HPI. Denies: Congestion, Dental pain, Ear pain, Epistaxis, Hearing loss, Throat pain Respiratory: Reports: As per HPI. Denies: Cough, Dyspnea, Hemoptysis, Stridor, Wheezes Cardiovascular: Reports: As per HPI. Denies: Arrhythmia, Chest pain, Dyspnea on exertion, Edema, Murmurs, Orthopnea, Palpitations, Paroxysmal nocturnal dyspnea, Rheumatic Fever, Syncope Endocrine: Reports: As per HPI. Denies: Fatigue, Heat or cold intolerance, Polydipsia, Polyuria Gastrointestinal: Reports: As per HPI. Denies: Abdominal pain, Constipation, Diarrhea, Hematemesis, Hematochezia, Melena, Nausea, Vomiting Genitourinary: Reports: As per HPI. Denies: Abnormal menses, Discharge, Dyspareunia, Dysuria, Frequency, Hematuria, Incontinence, Retention, Urgency Musculoskeletal: Reports: As per HPI. Denies: Arthralgia, Back pain, Gout, Joint swelling, Myalgia, Neck pain Skin: Reports: As per HPI. Denies: Bruising, Change in color, Change in hair/nails, Lesions, Pruritus, Rash Neurological: Reports: As per HPI. Denies: Abnormal gait, Confusion, Headache, Numbness, Paresthesias, Seizure, Tingling, Tremors, Vertigo, Weakness Psychiatric: Reports: As per HPI. Denies: Anxiety, Auditory hallucinations, Depression, Homicidal thoughts, Suicidal thoughts, Visual hallucinations Hematological/Lymphatic: Reports: As per HPI. Denies: Anemia, Blood Clots, Easy bleeding, Easy bruising, Swollen glands Past Medical History - SOCIAL HISTORY Smoking Status: Former smoker Alcohol Use: Occasional Drug Use: None - RESPIRATORY Hx Respiratory Disorders: Yes Hx Asthma: Yes (exercise induced fair control no recent hospitalizations) Hx Bronchitis: Yes Hx Dyspnea: Yes Hx Pneumonia: Yes Hx Sleep Apnea: Yes (possibly unable to test due to "severe insomnia") Hx of CPAP: No - CARDIOVASCULAR Hx Cardio Disorders: No - NEURO Hx Neuro Disorders: Yes Hx of Migraines: Yes (daily) - GI Hx GI Disorders: Yes Hx Reflux: Yes (on meds good control) Hx Nausea/Vomiting: Yes (occassionally with periods) Comment:: chronic diarrhea - Hx Genitourinary Disorders: No - ENDOCRINE Hx Endocrine Disorders: No - MUSCULOSKELETAL Hx Musculoskeletal Disorders: Yes Comment:: right carpal tunnel - PSYCH Hx Psych Problems: Yes Hx Anxiety: Yes (panic attacks 1-2 x's a week) - HEMATOLOGY/ONCOLOGY Hx Hematology/Oncology Disorders: No Family Medical History Any Significant Family History?: No Family Hx Comment (NOT TO BE USED IN PLACE OF ITEMS BELOW): Sister has Crohn's Hx Depression: Mother, Grandparents Hx Diabetes: Father, Mother, Brother/Sister, Grandparents Physical Exam - General General Appearance: Alert, Oriented x3, Cooperative, Mild distress - Head Head exam: Normal inspection - Eye Eye exam: Normal appearance, PERRL, EOMI Pupils: Normal accommodation - ENT ENT exam: Normal exam, Mucous membranes moist, Normal external ear exam, Normal orophraynx, TM's normal bilaterally Ear exam: Normal external inspection. negative: External canal tenderness Nasal Exam: Normal inspection. negative: Discharge, Sinus tenderness Mouth exam: Normal external inspection, Tongue normal Teeth exam: Normal inspection. negative: Dental caries Throat exam: Normal inspection. negative: Tonsillar erythema, Tonsillar exudate - Neck Neck exam: Normal inspection, Full ROM. negative: Tenderness - Respiratory Respiratory exam: Normal lung sounds bilaterally. negative: Respiratory distress - Cardiovascular Cardiovascular Exam: Normal rhythm, Normal heart sounds, Tachycardia - GI/Abdominal GI/Abdominal exam: Soft, Normal bowel sounds. negative: Tenderness - Rectal Rectal exam: Deferred - exam: Deferred - Extremities Extremities exam: Normal inspection, Full ROM, Normal capillary refill. negative: Tenderness - Back Back exam: Reports: Normal inspection, Full ROM. Denies: Muscle spasm, Rash noted, Tenderness - Neurological Neurological exam: Alert, Normal gait, Oriented X3, Reflexes normal - Psychiatric Psychiatric exam: Normal affect, Normal mood - Skin Skin exam: Dry, Intact, Normal color, Warm Course Vital Signs 07/21/19 07:37 Temperature 98.5 F Pulse Rate 120 H Respiratory 16 Rate Blood Pressure 143/102 Pulse Ox 100 Disposition Disposition: Discharge Clinical Impression: Sinusitis Qualifiers: Sinusitis location: unspecified location Chronicity: acute Recurrence: non- recurrent Qualified Code(s): J01.90 - Acute sinusitis, unspecified Pharyngitis Qualifiers: Pharyngitis/tonsillitis etiology: unspecified etiology Qualified Code(s): J02.9 - Acute pharyngitis, unspecified Disposition: Home, Self-Care Condition: (1) Good Instructions: Sinusitis (ED), Warm Compress or Soak (ED), Pharyngitis (ED) Additional Instructions: followup with family doctor. return sooner if worse. tylenol and motrin as needed Prescriptions: Miconazole Nitrate [Monistat] 45 gm VG BID #1 tube Azithromycin [Zithromax] 250 mg PO DAILY #6 tab Forms: Patient Portal Access Quality - Quality Measures Quality Measures: N/A - Blood Pressure Screening Does Patient Have Any of the Following: No Blood Pressure Classification: Hypertensive Reading Systolic Measurement: 143 Diastolic Measurement: 102 Screening for High Blood Pressure: < First Hypertensive BP, F/U Documented > [G8950] First Hypertensive Follow-up Interventions: Follow-up with rescreen GT 1 day and LT 4 weeks.
== END 2019-07-21 08:33 | disposition home or self-care (01) ==
LOC: ER 07:36
DX: J02.9 Acute pharyngitis, unspecified (principal); J01.90 Acute sinusitis, unspecified; Z87.891 Personal history of nicotine dependence
CPT/HCPCS: 87880; 99283

== ENCOUNTER 2019-08-11 08:38 | Emergency (ER) | payer MEDICAID ==
[2019-08-11 09:23] LABS: INFLUENZA A NEGATIVE (NEGATIVE); INFLUENZA B NEGATIVE (NEGATIVE); STREP A SCREEN NEGATIVE (NEGATIVE)
[2019-08-11 09:33] LABS: ABSOLUTE NEUTROPHIL COUNT 2.95; BASO % 0.6 % (0-6); EOS % 3.1 % (0-6); GRAN % 45.6 % (47-80); HEMATOCRIT 37.1 % (35.0-47.0); HEMOGLOBIN 11.7 gm/dl (11.6-16.0); LYMPH % 42.7 % (16-45); MEAN CORPUSCULAR HEMOGLOBIN 26.2 pg (27-33); MEAN CORPUSCULAR HGB CONC 31.5 g/dl (32-36); PLATELET COUNT 325 K/uL (130-400); RED BLOOD COUNT 4.47 M/uL (3.80-5.40); RED CELL DISTRIBUTION WIDTH 13.8 % (11.5-14.5); WHITE BLOOD COUNT W/O DIFF 6.5 K/uL (4.2-12.2)
--- NOTE | 2019-08-11 09:53 | Emergency Department Record ---
History of Present Illness - General Chief Complaint: Shortness of breath Stated Complaint: BRONCHITIS OR PNA Time Seen by Provider: 08/11/19 09:05 Source: Patient Mode of Arrival: Ambulatory Limitations: No limitations - History of Present Illness Initial Comments: pt has cough and congestion. pt was here 2 wks ago w similar symptoms and had a course of zithromax Complaint: Cough Onset/Timin -: Week(s) Improves With: Nothing Worsens With: Other Known History Of: Asthma Context: Recent illness, Recent URI Associated Symptoms: Cough - Related Data Home Medications Medication Instructions Recorded Confirmed Last Taken Acetaminophen/Dextromethorphan 30 ml PO Q4H 08/11/19 08/11/19 08/11/19 [Daytime Cold & Cough Liquid] Previous Rx's Medication Instructions Recorded Miconazole Nitrate [Monistat] 45 gm VG BID #1 tube 07/21/19 Allergies Allergy/AdvReac Type Severity Reaction Status Date / Time passion fruit Allergy Intermediate WHEEZING Verified 07/21/19 07:47 cat dander Allergy Mild HIVES Verified 07/21/19 07:47 dog dander Allergy Mild HIVES Verified 07/21/19 07:47 grass pollen Allergy Mild HIVES Verified 07/21/19 07:47 Travel Screening - Travel/Exposure Within Last 30 Days Have you traveled within the last 30 days?: No - Travel/Exposure Within Last Year Have you traveled outside the [place] in the last year?: No - Additonal Travel Details Have you been exposed to anyone with a communicable illness?: No - Travel Symptoms Symptom Screening: Headache, Chills Review of Systems Reviewed: No additional complaints except as noted below Constitutional: Reports: As per HPI. Denies: Chills, Fever, Malaise, Night sweats, Weakness, Weight change Eyes: Reports: As per HPI. Denies: Eye discharge, Eye pain, Photophobia, Vision change ENT: Reports: As per HPI. Denies: Congestion, Dental pain, Ear pain, Epistaxis, Hearing loss, Throat pain Respiratory: Reports: As per HPI, Cough. Denies: Dyspnea, Hemoptysis, Stridor, Wheezes Cardiovascular: Reports: As per HPI. Denies: Arrhythmia, Chest pain, Dyspnea on exertion, Edema, Murmurs, Orthopnea, Palpitations, Paroxysmal nocturnal dyspnea, Rheumatic Fever, Syncope Endocrine: Reports: As per HPI. Denies: Fatigue, Heat or cold intolerance, Polydipsia, Polyuria Gastrointestinal: Reports: As per HPI. Denies: Abdominal pain, Constipation, Diarrhea, Hematemesis, Hematochezia, Melena, Nausea, Vomiting Genitourinary: Reports: As per HPI. Denies: Abnormal menses, Discharge, Dyspareunia, Dysuria, Frequency, Hematuria, Incontinence, Retention, Urgency Musculoskeletal: Reports: As per HPI. Denies: Arthralgia, Back pain, Gout, Joint swelling, Myalgia, Neck pain Skin: Reports: As per HPI. Denies: Bruising, Change in color, Change in hair/nails, Lesions, Pruritus, Rash Neurological: Reports: As per HPI. Denies: Abnormal gait, Confusion, Headache, Numbness, Paresthesias, Seizure, Tingling, Tremors, Vertigo, Weakness Psychiatric: Reports: As per HPI. Denies: Anxiety, Auditory hallucinations, Depression, Homicidal thoughts, Suicidal thoughts, Visual hallucinations Hematological/Lymphatic: Reports: As per HPI. Denies: Anemia, Blood Clots, Easy bleeding, Easy bruising, Swollen glands Past Medical History - SOCIAL HISTORY Smoking Status: Former smoker Alcohol Use: Occasional Drug Use: None - RESPIRATORY Hx Respiratory Disorders: Yes Hx Asthma: Yes (exercise induced fair control no recent hospitalizations) Hx Bronchitis: Yes Hx Dyspnea: Yes Hx Pneumonia: Yes Hx Sleep Apnea: Yes (possibly unable to test due to "severe insomnia") Hx of CPAP: No - CARDIOVASCULAR Hx Cardio Disorders: No - NEURO Hx Neuro Disorders: Yes Hx of Migraines: Yes (daily) - GI Hx GI Disorders: Yes Hx Reflux: Yes (on meds good control) Hx Nausea/Vomiting: Yes (occassionally with periods) Comment:: chronic diarrhea - Hx Genitourinary Disorders: No - ENDOCRINE Hx Endocrine Disorders: No - MUSCULOSKELETAL Hx Musculoskeletal Disorders: Yes Comment:: right carpal tunnel - PSYCH Hx Psych Problems: Yes Hx Anxiety: Yes (panic attacks 1-2 x's a week) - HEMATOLOGY/ONCOLOGY Hx Hematology/Oncology Disorders: No Family Medical History Any Significant Family History?: No Family Hx Comment (NOT TO BE USED IN PLACE OF ITEMS BELOW): Sister has Crohn's Hx Depression: Mother, Grandparents Hx Diabetes: Father, Mother, Brother/Sister, Grandparents Physical Exam - General General Appearance: Alert, Oriented x3, Cooperative, No acute distress - Head Head exam: Normal inspection - Eye Eye exam: Normal appearance, PERRL, EOMI Pupils: Normal accommodation - ENT ENT exam: Normal exam, Mucous membranes moist, Normal external ear exam, Normal orophraynx Ear exam: Normal external inspection. negative: External canal tenderness Nasal Exam: Normal inspection. negative: Discharge, Sinus tenderness Mouth exam: Normal external inspection, Tongue normal Teeth exam: Normal inspection. negative: Dental caries Throat exam: Normal inspection. negative: Tonsillar erythema, Tonsillar exudate - Neck Neck exam: Normal inspection, Full ROM. negative: Tenderness - Respiratory Respiratory exam: Normal lung sounds bilaterally. negative: Respiratory distress - Cardiovascular Cardiovascular Exam: Regular rate, Normal rhythm, Normal heart sounds - GI/Abdominal GI/Abdominal exam: Soft, Normal bowel sounds. negative: Tenderness - Rectal Rectal exam: Deferred - exam: Deferred - Extremities Extremities exam: Normal inspection, Full ROM, Normal capillary refill. negative: Tenderness - Back Back exam: Reports: Normal inspection, Full ROM. Denies: Muscle spasm, Rash noted, Tenderness - Neurological Neurological exam: Alert, CN II-XII intact, Normal gait, Oriented X3 - Psychiatric Psychiatric exam: Normal affect, Normal mood - Skin Skin exam: Dry, Intact, Normal color, Warm Course Vital Signs 08/11/19 08:43 Temperature 98.7 F Pulse Rate 102 H Respiratory 18 Rate Blood Pressure 130/80 Pulse Ox 100 Medical Decision Making - Lab Data Result diagrams: 08/11/19 09:28 Lab Results 08/11/19 08/11/19 Range/Units 08:56 09:28 WBC 6.5 (4.2-12.2) K/uL RBC 4.47 (3.80-5.40) M/uL Hgb 11.7 (11.6-16.0) gm/dl Hct 37.1 (35.0-47.0) % MCV 83.0 (81-97) fl MCH 26.2 L (27-33) pg MCHC 31.5 L (32-36) g/dl RDW 13.8 (11.5-14.5) % Plt Count 325 (130-400) K/uL MPV 9.0 (7.4-10.4) fl Gran % 45.6 L (47-80) % Lymphocytes % 42.7 (16-45) % Monocytes % 8.0 (0-9) % Eosinophils % 3.1 (0-6) % Basophils % 0.6 (0-6) % Absolute Neutrophils 2.95 Influenza Type A Ag Negative (NEGATIVE) Influenza Type B Ag Negative (NEGATIVE) Group A Strep Screen Negative (NEGATIVE) Disposition Disposition: Discharge Clinical Impression: URI (upper respiratory infection) Qualifiers: URI type: unspecified viral URI Qualified Code(s): J06.9 - Acute upper respiratory infection, unspecified Disposition: Home, Self-Care Condition: (1) Good Instructions: Upper Respiratory Infection (ED) Additional Instructions: follow up with family doctor. return sooner if worse. push fluids. use nyquil and dayquil as needed Forms: Patient Portal Access Quality - Quality Measures Quality Measures: N/A - Blood Pressure Screening Does Patient Have Any of the Following: No Blood Pressure Classification: Pre-Hypertensive BP Reading Systolic Measurement: 130 Diastolic Measurement: 80 Screening for High Blood Pressure: < Pre-Hypertensive BP, F/U Documented > [G8950] Pre-Hypertensive Follow-up Interventions: Follow-up with rescreen every year.
--- NOTE | 2019-08-11 09:57 | RADIOLOGY REPORT ---
EXAMINATION: Two View Chest Radiographs EXAM DATE: 08/11/2019 9:51 AM TECHNIQUE: Frontal and lateral views INDICATION: cough COMPARISON: May 29, 2019 ENCOUNTER: Not applicable FINDINGS: The heart, mediastinum, and pulmonary vasculature are normal. No lung consolidation or pleural effu sions are present. IMPRESSION: No acute radiographic findings. Dictated by: Sherly Hay MD on 08/11/2019 9:55 AM. .
== END 2019-08-11 10:09 | disposition home or self-care (01) ==
LOC: ER 08:38
DX: J06.9 Acute upper respiratory infection, unspecified (principal); R06.02 Shortness of breath; R05 Cough; R09.89 Other specified symptoms and signs involving the circulatory and respiratory systems; R51 Headache; Z87.891 Personal history of nicotine dependence
CPT/HCPCS: 71046; 85025; 87400; 87880; 99284